=== PATIENT | male | born 1945 | race Caucasian/White ===

== ENCOUNTER 2022-05-11 21:26 | Emergency (ER) | payer MEDICARE, BC, SELFPAY ==
[2022-05-11 21:38] VITALS: BP 188/74; PULSE 97; RESP 18; TEMP 36.9; O2SAT 99; BMI 39.9
--- NOTE | 2022-05-11 21:59 | ED_ITS ---
HPI - Chest Pain General Chief Complaint: Chest Pain Stated Complaint: Tightness in chest, trapped belch Time Seen by Provider: 05/11/22 21:55 History of Present Illness HPI narrative: 76-year-old man presenting with his daughter with concern of epigastric area discomfort. He describes it as gas that just will not come up. as he tries to belch seems to exacerbate his anxiety. He says not really a pain more like a sensation of a bubble. Has tried anti-gas chewables. He is receiving chemotherapy and they think there is some degree of constipation from his medications. Last bowel movement prior to today was 5 or 6 days ago. Today had some smaller stools 4 times. This apparently was aided by MiraLax. Did experience some nausea yesterday he thinks when felt like 1 belch seemed stock. no fever. No shortness of breath generally. Does have diazepam recently prescribed but has not been taking it. 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 There was also uptake in the bilateral hilar and right lower paratracheal lymph nodes, subcentimeter 6 mm nodule in the right upper lobe . 03/11/2022 started on Lupron 22.5 mcg subQ Q 3 monthly 03/11/2022 PSA 116 03/19/2022 DEXA scan consistent with normal bone density 03/24/2022 Xtandi started at 2 capsules oral daily for 1 week followed by 3 capsules oral daily for 1 week followed by 4 capsules oral daily 03/31/2022 lymph node FNA from the 4R/10 L/11 L stations consistent with metastatic prostate carcinoma Related Data Home Medications Medication Instructions Recorded Confirmed enzalutamide 40 mg capsule 160 mg PO DAILY 05/06/22 05/06/22 aspirin 81 mg capsule 81 mg PO DAILY 05/11/22 05/11/22 diazepam 5 mg tablet mg 05/11/22 glipizide 10 mg tablet mg 05/11/22 insulin glargine 100 unit/mL (3 unit SUBCUT 05/11/22 mL) subcutaneous pen (Lantus Solostar U-100 Insulin) losartan 100 mg tablet mg 05/11/22 metformin 1,000 mg tablet mg 05/11/22 simvastatin 20 mg tablet mg 05/11/22 triamterene 75 tab 05/11/22 mg-hydrochlorothiazide 50 mg tablet Allergies Allergy/AdvReac Type Severity Reaction Status Date / Time No Known Drug Allergies Allergy Verified 05/11/22 21:44 Review of Systems Status of ROS Reports: 10 or more systems reviewed and unremarkable except as noted in History and below PFSH [facility] Social History Smoking Status: Former smoker How often do you have a drink containing alcohol: monthly or less AUDIT-C Alcohol total score: 1 Non-prescribed substance use: denies use service: No Exam Narrative Exam Narrative: Mr. Huerta is a little distracted. Daughter answers many of these questions. Is seeming to make efforts at belching. At 1 point then demonstrating slight relief with a belch. Appears mildly uncomfortable Is breathing easily. Lungs appear to be clear. Oropharynx is moist. Cardiovascular with elevated regular rate. Abdomen is obese soft and nontender. Normoactive bowel sounds are present. Const Vital Signs, click to edit/add: Vital Signs - 24 hr 05/11/22 21:38 Temperature 98.4 F Pulse Rate [Left Pulse Oximeter] 97 Respiratory Rate 18 Blood Pressure [Left Upper Arm] 188/74 H Pulse Oximetry 99 Course Course Hospital Course: Differential certainly includes cardiac issue here but really seems to be demonstrating a gas mobilization issue and some anxiety around that. Ordered abdominal x-ray to evaluate for air-fluid pattern and degree of potential constipation. Was also treated with liquid anti-gas. This resulted in some relief of his symptoms. Vital Signs Vital signs: Initial Vital Signs Temperature 98.4 F 05/11/22 21:38 Temperature Source Temporal Artery Scan 05/11/22 21:38 Pulse Rate 97 05/11/22 21:38 Respiratory Rate 18 05/11/22 21:38 Blood Pressure 188/74 H 05/11/22 21:38 Blood Pressure Mean 112 05/11/22 21:38 Blood Pressure Position Sitting 05/11/22 21:38 Pulse Oximetry 99 05/11/22 21:38 Oxygen Delivery Method 05/11/22 21:38 Vital Signs Temperature 98.4 F 05/11/22 21:38 Pulse Rate 97 05/11/22 21:38 Respiratory Rate 18 05/11/22 21:38 Blood Pressure 188/74 H 05/11/22 21:38 Pulse Oximetry 99 05/11/22 21:38 Temperature 98.4 F 05/11/22 21:38 Pulse Rate 97 05/11/22 21:38 Respiratory Rate 18 05/11/22 21:38 Blood Pressure 188/74 H 05/11/22 21:38 Pulse Oximetry 99 05/11/22 21:38 MDM - Chest Pain MDM Narrative Medical decision making narrative: Abdominal x-ray does not show concerning air-fluid levels on my review. Limited by abdominal habitus I would say. There is rectal sigmoid and descending colon stool though not necessarily excessive. Radiology review notes cancer related sclerotic lesions. By description though he is constipated See discharge for further recommendations. Given time of night and holiday weekend, did send with a few more doses of liquid anti-gas/antacid as requested. Medical Records Data Attestation: I reviewed the patient's medical records. Discharge Plan Discharge Clinical Impression: Sensation of gaseous abdominal fullness, Anxiety, Constipation Patient Disposition: Home w/ Parent or Adult Condition: Improved Additional Instructions: can take liquid anti-gas a few times daily as needed. the active ingredient in anti-gas medication is simethicone. Often this is combined with antacid. important to hydrate. Can continue with MiraLax probably 2-3 capfulls in the morning. Then adjust for stool consistency. For more urgent constipation relief, especially with hard stools, I would consider placing an enema and repeating in an hour so if no significant result. Can also does 1/2 bottle to a whole bottle of Mag medium citrate and repeating next day if no significant result. If you do end up needing to take opiates in the course of all of this, be sure to be supplementing with a senna product. Return for marked increase in persistent abdominal pain, repeated vomiting. It is okay to use your diazepam if your feeling particularly anxious; That is what It is prescribed for. Prescriptions: No Action enzalutamide 40 mg capsule 160 mg PO DAILY 0RF aspirin 81 mg capsule 81 mg PO DAILY 0RF glipizide 10 mg tablet 0RF simvastatin 20 mg tablet 0RF metformin 1,000 mg tablet 0RF triamterene-hydrochlorothiazid 75-50 mg tablet 0RF losartan 100 mg tablet 0RF diazepam 5 mg tablet 0RF Label Comments: 5 MG PO TID PRN insulin glargine [Lantus Solostar U-100 Insulin] 100 unit/mL (3 mL) insulin pen SUBCUT 0RF Follow Up/Referrals: Art Leonardo MD [Primary Care Provider] - Stand Alone Forms: [employer] Info Instructions
--- NOTE | 2022-05-11 22:08 | CRLHL7_ITS ---
For Patients: As a result of the Century Cures Act, medical imaging exams and procedure reports are released immediately into your electronic medical record. You may view this report before your referring provider. If you have questions, please contact your health care provider. INDICATION: Abdominal fullness, gas TECHNIQUE: Abdomen/Pelvis radiograph 5 views COMPARISON: None FINDINGS: Bowel: The bowel gas pattern is normal without evidence of bowel obstruction. A normal amount of colonic stool is present. Soft tissue: No evidence of pneumoperitoneum present. No suspicious calcifications noted. Bone: Unremarkable for age. Miscellaneous: There is an ovoid region of sclerosis overlying the right SI joint measuring 3.8 x 2.3 cm. IMPRESSION: 1. There is an ovoid region of sclerosis overlying the right SI joint measuring 3.8 x 2.3 cm. Comparison with any prior outside imaging is recommended. If these cannot be obtained, assessment with bone scan or CT may be warranted if the patient has a history of primary malignancy. Dictated by Nacho Dawson MD @ 05/11/2022 11:07:25 PM Dictated by: Nacho Dawson MD @ 05/11/2022 23:07:33 (Electronically Signed)
[2022-05-11] MEDS: MAG HYDROX/ALUMINUM HYD/SIMETH 30 ML ORAL.SUSP PO (22:50)
--- NOTE | 2022-05-11 23:56 | ED.NURSE ---
2350 Pt standing at door acco by daughter eager for dc instruction, denies pain now, sent with two cups of maalox per Dr. Guevara Rx
== END 2022-05-11 23:53 ==
PROVIDERS: Emergency Provider Family Medicine; PCP Surgery
DX: R14.0 Abdominal distension (gaseous) (principal); F41.9 Anxiety disorder, unspecified; K59.00 Constipation, unspecified
CPT/HCPCS: 74019; 99283; 99284; A9270

== ENCOUNTER 2022-05-20 15:02 | Outpatient (RCR) | payer MEDICARE, BC, SELFPAY ==
--- OUTSIDE RECORDS SUMMARY | 2022-05-02 14:43 | XMS_ITS | Continuity of Care Document ---
:1945 Author Care Team Providers Name Role Phone MD Malissa Primary Care Physician MD Andrew Attending Physician Unavailable Allergies, Adverse Reactions, Alerts No known allergies Social History Smoking Status Unknown if ever smoked Additional Data Assigned Sex Male Problems Active Problems Medical Problem Onset Date Status Prostate cancer 2021 Active Medications Medication Status Dose Units Route Directions Qty Days Start End Ins tructions Date Date Acetaminophen Active 325-6 MG PO Every 4 100 NO MORE THAN (Tylenol) 325 50 Hours as 400 0 MG/DAY Mg TAB needed Aluminum Active 1 ST OR As Needed Hydroxide-Mag Carb (Heartburn Antacid Extra S) Ex St CHW Aspirin Active 81 MG PO Daily 100 Calms Active Fortsleep Aid Diazepam Active 5 MG PO Three Times 30 March A Day as 3rd, needed 2021 10:29a m Enzalutamide Active 160 MG PO Daily 120 07 April take 4 (Xtandi) 40 Mg 3rd, capsu les oral CAP 2021 daily. 10:34a m Glipizide Active 10 MG PO Daily 30 Glucose Gummy Active Insulin Active 60 UNIT SUBQ Bedtime 15 Glargine (Lantus Solostar) 100 Unit/Ml INJ Losartan Active 100 MG PO Daily 30 Potassium Metformin Hcl Active 1000 MG PO Twice Daily 60 With Meals Simvastatin Active 20 MG PO Bedtime 30 Triamterene/Hc Active 1 TAB PO Daily 30 tz (Maxzide) 75 Mg/50 Mg TAB Bicalutamide Discontinu 50 MG OR Daily 14 14 March ed 3rd, , 2021 2021 10:31a 8:31a m m Dextromethorph Discontinu 1 FLU OR April an-Doxylamine- ed , (Nyquil 2021 Cold & Flu) / 8:31a LIQ m Enzalutamide Discontinu 160 MG PO Daily 120 30 March ta ke 4 (Xtandi) 40 Mg ed 3rd, 3rd, capsu les oral CAP 2021 2021 daily 10:31a 10:34 m am Relevant Diagnostic Tests and/or Laboratory Data Laboratory Results Test Date/Time Result Interpretation Reference Result Comment Performing Range Site White Blood April 16, 5.30 5.00-10.00 [facility] Count 2021 [address] [facility] 8:26am [place] [address] Red Blood Count April 16, 3.86 4.32-5.72 [facility] 2021 [address] [facility] 8:26am [place] [address] Hemoglobin April 16, 12.1 13.5-17.5 [facility] 2021 [address] [facility] 8:26am [place] [address] Hematocrit April 16, 37.4 38.8-50.0 [facility] 2021 [address] [facility] 8:26am [place] [address] Mean April 16, 97 81-95 [facility] Corpuscular 2021 1999 [facility] Volume 8:26am [place] [address] Mean April 16, 31 27-34 [facility] Corpuscular 2021 1999 [facility] Hemoglobin 8:26am [place] [address] Mean April 16, 32 32-36 [facility] Corpuscular 2021 1999 [facility] Hemoglobin 8:26am [place] [address] Concent Platelet Count April 16, 202 150-450 [facility] Lab 2021 [address] [facility] 8:26am [place] [address] RDW Coefficient April 16, 12.3 11.5-15.3 [facility] of Variation 2021 1999 No [facility] 8:26am [place] [address] Neutrophils (%) April 16, 60.9 50.0-70.0 [facility] (Auto) 2021 [address] [facility] 8:26am [place] [address] Lymphocytes (%) April 16, 23.6 25.0-45.0 [facility] (Auto) 2021 [address] [facility] 8:26am [place] [address] Monocytes (%) April 16, 9.6 0.00-11.0 [facility] (Auto) 2021 [address] [facility] 8:26am [place] [address] Eosinophils (%) April 16, 4.2 0.0-7.0 [facility] (Auto) 2021 [address] [facility] 8:26am [place] [address] Basophils (%) April 16, 0.8 0.0-3.0 [facility] (Auto) 2021 [address] [facility] 8:26am [place] [address] Immature April 16, [address].9 [facility] Granulocyte % 2021 1999 [facility] (Auto) 8:26am [facility] [address] Neutrophils # April 16, 3.23 1.70-7.00 [facility] (Auto) 2021 [address] [facility] 8:26am [place] [address] Lymphocytes # April 16, 1.25 0.90-2.90 [facility] (Auto) 2021 [address] [facility] 8:26am [place] [address] Monocytes # April 16, 0.51 0.30-0.90 [facility] Lab (Auto) 2021 [address] [facility] 8:26am [facility] [address] Eosinophils # April 16, 0.22 0.00-0.50 [facility] (Auto) 2021 [address] [facility] 8:26am [facility] [address] Basophils # April 16, 0.04 0.00-0.20 [facility] Lab (Auto) 2021 [address] [facility] 8:26am [place] [address] Immature April 16, [address].05 [facility] Granulocyte # 2021 [address] [facility] (Auto) 8:26am [facility] [address] Random Glucose April 16, 146 60-115 [facility] 2021 [address] [facility] 8:26am [facility] [address] Blood Urea April 16, 34 7-30 [facility] Nitrogen 2021 [address] [facility] 8:26am [place] [address] Creatinine April 16, 1.5 0.5-1.5 [facility] 2021 [address] [facility] 8:26am [place] [address] [address]imated April [address], [address] [facility] Creatinine 2021 1999 [facility] Clearance 8:26am [facility] [address] Sodium Level April 16, 137 135-149 [facility] 2021 [address] [facility] 8:26am [facility] [address] Potassium Level April 16, 4.7 3.6-5.1 [facility] 2021 [address] [facility] 8:26am [place] [address] Chloride Level April 16, 101 96-114 [facility] 2021 [address] [facility] 8:26am [facility] [address] Carbon Dioxide April 16, 20-32 [facility] Level 2021 [address] [facility] 8:26am [facility] [address] Calcium Level April 16, 8.9 8.4-10.6 [facility] 2021 [address] [facility] 8:26am [facility] [address] Total Protein April 16, 7.1 6.0-8.3 The use of [facility] Lab 2021 Eltrombopag, a [address] [facility] 8:26am bone [place] [address] stimulant used to treat thrombocytopenia and aplastic anemia, interferes with this measurement of total protein. A 5% bias has been observed. Albumin April 16, 4.2 3.3-5.0 [facility] 2021 [address] [facility] 8:26am [facility] [address] Total Bilirubin April 16, 0.4 0.1-1.5 [facility] 2021 [address] [facility] 8:26am [facility] [address] Aspartate Amino April 16 12-35 [facility] Transf 2021 1999 [facility] (AST/SGOT) 8:26am [place] [address] Alanine April 16, 18 4-50 [facility] Aminotransferas 2021 [address] [facility] e (ALT/SGPT) 8:26am [place] [address] Alkaline April 16, 103 40-150 [facility] Phosphatase 2021 1999 [facility] 8:26am [facility] [address] Prostate March 11, 116.00 0.10-4.00 Patients taking a No [facility] Specific 2021 high dose [address] [facility] Antigen 11:23am (>5mg/day) [place] [address] Biotin supplement (vitamin B7) will demonstrate a >10% negative bias for this test. Insurance Providers Guarantor Valencia Isbell Address [address] [place] [address] [address] [place] [id number] Contact Info. Home Phone: Payer Policy Id Coverage Id Subscriber's Subscriber Id Effective E xpiration Name Date Date Medicare [id number] S[place]hi, [id number] 08 Valencia Eric Medicaid [id number] [employer], Products 469 Valencia L Encounters Encounter Location(s) Arrival/Admit Date Discharge/Depart Date Provider(s) Registered [place] April 16, 2022 Ariella Morales [facility] 7:05am
[2022-05-14 08:53] LABS: Basophils Absolute Auto 0.05 K/uL (0.00-0.30); Basophils Percent Auto 0.9 % (0.0-3.0); Eosinophils Absolute Auto 0.18 K/uL (0.00-0.50); Eosinophils Percent Auto 3.2 % (0.0-7.0); Hematocrit 35.7 % (37.0-53.0); Hemoglobin* 11.9 gm/dL (13.5-17.5); Immature Granulocytes Abs Auto 0.03 K/uL (0.00-0.30); Lymphocytes Absolute Auto 1.14 K/uL (0.90-2.90); Lymphocytes Percent Auto 20.4 % (20-44); Mean Corpuscular HGB Conc 33 gm/dL (32-36); Mean Corpuscular Hemoglobin 32 pg (26-34); Mean Corpuscular Volume 96 fL (80-100); Monocytes Percent Auto 10.9 % (0.0-11.0); Neutrophils Absolute Auto 3.57 K/uL (1.7-7.0); Neutrophils Percent Auto 64.1 % (42.0-72.0); Platelet Count* 228 K/uL (140-440); RDW Coefficient of Variation % 12.1 % (11.5-15.5); Red Blood Count 3.73 m/uL (4.30-5.90); White Blood Count* 5.58 K/uL (4.50-11.00)
[2022-05-14 08:56] LABS: Slide Review Reflex No
[2022-05-14 09:07] LABS: Chloride* 102 mmol/L (96-114); Potassium* 4.7 mmol/L (3.6-5.1); Sodium* 138 mmol/L (135-149)
[2022-05-14 09:09] LABS: Creatinine* 1.7 mg/dL (0.5-1.5); Estimated Glomerular Filt Rate 41.26
[2022-05-14 09:10] LABS: Alanine Aminotransferase* 17 U/L (4-50); Alkaline Phosphatase* 115 U/L (40-150); Aspartate Amino Transferase* 23 U/L (12-35); Bilirubin Total* 0.6 mg/dL (0.1-1.5); Blood Urea Nitrogen* 36 mg/dL (7-30); Calcium* 8.3 mg/dL (8.4-10.6); Carbon Dioxide* 31 mmol/L (20-32); Glucose* 202 mg/dL (60-115); Total Protein* 6.9 g/dL (6.0-8.3)
--- NOTE | 2022-05-15 16:51 | ONC.NURNOTE ---
Authorization: User: Jana Reyes Aleksandertatykelsey Date: 03/14/22 11:04 Type: Eligibility Determination Note... Request received from [facility] for prior authorization of Leuprolide [id number]. Patient carries Medicare as primary insurance. Per CMS.gov LCD [id number] no prior authorization is required for Leuprolide. Services are based on medical necessity and follows Medicare guidelines.
[2022-05-20 15:48] LABS: Creatinine* 1.5 mg/dL (0.5-1.5); Estimated Glomerular Filt Rate 47.95
--- NOTE | 2022-05-20 16:37 | ONC.NURNOTE ---
copy of Creating left for Dr. Morales to see tomorrow
--- NOTE | 2022-05-21 15:52 | ONC.NURNOTE ---
Cremarion called to daughter, returned to his recent baseline reminded to continue to work on staying hydrated reviewed by Dr Morales
== END 2022-06-08 23:59 | disposition home or self-care (01) ==
LOC: CCIC 15:02
PROVIDERS: PCP Surgery; Visit Provider Internal Medicine Hematology & Oncology
DX: C61 Malignant neoplasm of prostate (principal)
CPT/HCPCS: 36415; 80053; 82565; 85025; 99212; 99215

== ENCOUNTER 2022-07-11 07:57 | Outpatient (CLI) | payer MEDICARE, BC, SELFPAY ==
--- OUTSIDE RECORDS SUMMARY | 2022-07-11 08:00 | XMS_ITS ---
:1945 Author Care Team Providers Name Role Phone SAADIA DAVIS MD Primary Care Provider [phone] Allergies Code Code System Name Reaction Severity Status Onset NKDA ? Medications Name Status Start Date Stop Date ? ? ceftriaxone 1 gram solution for injection Active ? Not available Take 1 g by injection route. diazepam 10 mg tablet Active ? Not availa ble doxazosin 2 mg tablet Active ? Not availa ble glipizide 10 mg tablet Active ? Not avail able Lantus Solostar U-100 Insulin 100 unit/mL (3 mL) Active ? Not available subcutaneous pen losartan 100 mg tablet Active ? Not avail able losartan 50 mg tablet Active ? Not availa ble metformin 1,000 mg tablet Active ? Not av ailable simvastatin 20 mg tablet Active ? Not arvin ilable triamterene 75 mg-hydrochlorothiazide 50 mg tablet Active ? Not available Unifine Pentips 32 gauge x 1/4 needle Active ? Not available Problems None recorded. Procedures Date Name Performed by ? 08/05/2018 Extraction of Cataract Information not a vailable Notes: LEFT ? Extraction of Cataract Information not a vailable Notes: RIGHT: 2015 Results Lab Results None recorded. Past Encounters 02/20/2022 Raised Prostate Specific Antigen Jaovn Nichols MD: [address] [place] [address], Ph. Social History Tobacco Smoking Status Former Smoker Vaccine List None recorded. Plan of Care Reminders Provider Appointments None recorded. ? ? Lab None recorded. ? ? Referral None recorded. ? ? Procedures None recorded. ? ? Surgeries None recorded. ? ? Imaging None recorded. ? ? Vitals Height Weight BMI 5 ft 5 in 240 lbs 39.9 kg/m2
--- OUTSIDE RECORDS SUMMARY | 2022-07-11 08:00 | XMS_ITS | Encounter Summary ---
:1945 Author Organization [facility] Address [address] [place] [address] Care Team Providers Name Role Phone Unavailable Primary Care Provider Unavailable Reason for Visit Reason Onset Date Comments Surgery Date 06/18/2018 Encounter Details Date Type Department Care Team Description 06/18/2018 Clinical Communication [facility], in [address] [place], [place] [address] [facility] [address] [place] [phone] [address] (Work) [phone] Social History Tobacco Use Types Packs/Day Years Used Date Smoking Tobacco: Never Assessed Sex Assigned at Date Recorded Not on file documented as of this encounter Miscellaneous Notes Telephone Encounter - Nathaly Vizcaino - 06/18/2018 12:46 PM CDT PHYSICIAN: Johnathan REASON FOR CALL: Preop done Flako Mixon S: SURG DATE: 08/05/18 left Cataract Johnathan B: REQUEST FOR SURG: YANI A: ANESTHESIA: topical R: HOSP WILL CALL WITH TIME documented in this encounter Plan of Treatment Not on filedocumented as of this encounter Visit Diagnoses Not on filedocumented in this encounter
--- OUTSIDE RECORDS SUMMARY | 2022-07-11 08:00 | XMS_ITS | Encounter Summary ---
:1945 Author Organization [facility] Address [address] [place] [address] Care Team Providers Name Role Phone Unavailable Primary Care Provider Unavailable Encounter Details Date Type Department Care Team Description 07/19/2018 Ancillary Procedure Department of Ophthalmology Social History Tobacco Use Types Packs/Day Years Used Date Smoking Tobacco: Never Assessed Sex Assigned at Date Recorded Not on file documented as of this encounter Plan of Treatment Not on filedocumented as of this encounter Procedures Procedure Name Priority Date/Time Associated Comments Diagnosis OPHTHALMOLOGY IMAGE Routine 07/19/2018 12:00 Resu lts for this EXAM PM CDT procedure are i n the results section. documented in this encounter Results OPHTHALMOLOGY IMAGE EXAM (07/19/2018 12:00 PM CDT) Specimen (Source) Anatomical Location Collection Method / Collectio n Time Received Time / Laterality Volume Narrative [facility] - 08/17/2018 7:08 AM CDT This order has been created and auto-finalized to support the import of images acquired without order. The clini nathaniel documentation to support these images can be found on the encounter cristela t produced images. Provider Not In System IMG NON RAD IMAGING PROCEDUR ES Performing Organization Address City/State/ZIP Code Phon e Number [facility] NA documented in this encounter Visit Diagnoses Not on filedocumented in this encounter
--- OUTSIDE RECORDS SUMMARY | 2022-07-11 08:00 | XMS_ITS | Encounter Summary ---
:1945 Author Organization [facility] Address [address] [place] [address] Care Team Providers Name Role Phone Unavailable Primary Care Provider Unavailable Encounter Details Date Type Department Care Team Description 04/26/2013 Hospital Encounter HX NO MAPPING Provider, Historical Social History Tobacco Use Types Packs/Day Years Used Date Smoking Tobacco: Never Assessed Sex Assigned at Date Recorded Not on file documented as of this encounter Plan of Treatment Not on filedocumented as of this encounter Procedures Procedure Name Priority Date/Time Associated Comments Diagnosis HX UREA NITROGEN Routine 04/26/2013 10:24 PM Resu lts for this CDT procedure are i n the results section. HX CHOL/HDL RATIO Routine 04/26/2013 10:24 PM Res ults for this CDT procedure are i n the results section. HX VLDL CHOL Routine 04/26/2013 10:24 PM Results for this CDT procedure are i n the results section. CREATININE WITH Routine 04/26/2013 10:24 PM Resul ts for this EGFR, P CDT procedure are i n the results section. CREATININE WITH Routine 04/26/2013 10:24 PM Resul ts for this EGFR, P CDT procedure are i n the results section. LIPID PANEL, S Routine 04/26/2013 10:24 PM Result s for this CDT procedure are i n the results section. TRIGLYCERIDES, S Routine 04/26/2013 10:24 PM Resu lts for this CDT procedure are i n the results section. CHOLESTEROL, HDL, S Routine 04/26/2013 10:24 PM R esults for this CDT procedure are i n the results section. CREATININE WITH Routine 04/26/2013 10:24 PM Resul ts for this EGFR, S/P CDT procedure are i n the results section. CHOLESTEROL, TOTAL, Routine 04/26/2013 10:24 PM R esults for this S CDT procedure are i n the results section. HEMOGLOBIN A1C, B Routine 04/26/2013 10:14 PM Res ults for this CDT procedure are i n the results section. documented in this encounter Results Creatinine with Estimated GFR (MDRD), Plasma (04/26/2013 10:24 PM CDT) P athologist Signature eGFR 63 [id number] [facility] [place] [facility] Specimen (Source) Anatomical Collection Method Collection Time Re ceived Time Location / / Volume Laterality 04/26/2013 10:24 PM CDT Historical Provider LAB BLOOD ADD-ON Performing Organization Address City/State/ZIP Code Phon e Number [facility] Creatinine with Estimated GFR (MDRD), Plasma (04/26/2013 10:24 PM CDT) P athologist Signature HXeGFR (MDRD) 52 [id number] [facility] Specimen (Source) Anatomical Collection Method Collection Time Re ceived Time Location / / Volume Laterality 04/26/2013 10:24 PM CDT Historical Provider LAB BLOOD ADD-ON Performing Organization Address City/State/ZIP Code Phon e Number [facility] Creatinine with Estimated GFR (MDRD) (04/26/2013 10:24 PM CDT) P athologist Signature Creatinine 1.37 MGDL [facility] Specimen (Source) Anatomical Collection Method Collection Time Re ceived Time Location / / Volume Laterality 04/26/2013 10:24 PM CDT Historical Provider LAB BLOOD ADD-ON Performing Organization Address City/State/ZIP Code Phon e Number [facility] HX UREA NITROGEN (04/26/2013 10:24 PM CDT) P athologist Signature Urea Nitrogen, 31 MGDL [facility] 24 HR, [facility] Specimen (Source) Anatomical Collection Method Collection Time Re ceived Time Location / / Volume Laterality 04/26/2013 10:24 PM CDT Historical Provider LAB HISTORICAL ORDERS Performing Organization Address City/State/ZIP Code Phon e Number [facility] HX CHOL/HDL RATIO (04/26/2013 10:24 PM CDT) P athologist Signature Total 2.8 [facility] Cholesterol/HDL [facility] Ratio LAB Specimen (Source) Anatomical Collection Method Collection Time Re ceived Time Location / / Volume Laterality 04/26/2013 10:24 PM CDT Historical Provider LAB HISTORICAL ORDERS Performing Organization Address City/State/ZIP Code Phon e Number [facility] HX VLDL CHOL (04/26/2013 10:24 PM CDT) P athologist Signature VLDL cholesterol 40 MGDL [facility] Specimen (Source) Anatomical Collection Method Collection Time Re ceived Time Location / / Volume Laterality 04/26/2013 10:24 PM CDT Historical Provider LAB HISTORICAL ORDERS Performing Organization Address City/State/ZIP Code Phon e Number [facility] Lipid Panel (04/26/2013 10:24 PM CDT) P athologist Signature Calculated LDL 35 MGDL [facility] Specimen (Source) Anatomical Collection Method Collection Time Re ceived Time Location / / Volume Laterality 04/26/2013 10:24 PM CDT Narrative [facility] - 01/05/20 14 7:57 PM [employer] LDL Cholesterol is the primary guide to therapy: LDL-cholesterol goal in high risk patients is <100 mg/dL and in very high risk patients is <70 mg/dL. Historical Provider LAB BLOOD ADD-ON Performing Organization Address City/State/ZIP Code Phon e Number [facility] Cholesterol, High-Density Lipoprotein (HDL) (04/26/2013 10:24 PM CDT) P athologist Signature HX HDL 41 MGDL [facility] Specimen (Source) Anatomical Collection Method Collection Time Re ceived Time Location / / Volume Laterality 04/26/2013 10:24 PM CDT Historical Provider LAB BLOOD ADD-ON Performing Organization Address City/State/ZIP Code Phon e Number [facility] Triglycerides (04/26/2013 10:24 PM CDT) P athologist Signature Triglycerides 199 MGDL [facility] Specimen (Source) Anatomical Collection Method Collection Time Re ceived Time Location / / Volume Laterality 04/26/2013 10:24 PM CDT Historical Provider LAB BLOOD ADD-ON Performing Organization Address City/State/ZIP Code Phon e Number [facility] Cholesterol, Total (04/26/2013 10:24 PM CDT) P athologist Signature Cholestanol 116 MGDL [facility] Specimen (Source) Anatomical Collection Method Collection Time Re ceived Time Location / / Volume Laterality 04/26/2013 10:24 PM CDT Narrative [facility] - 01/05/20 14 7:57 PM [employer] LDL Cholesterol is the primary guide to therapy. The NCEP recommends further evaluation o f: patients with cholesterol greater than 200 mg/dL if additional risk factor s are present, cholesterol greater than 240 mg/dL, triglycerides greater than 15 0 mg/dL, or HDL less than 40 mg/dL. Historical Provider LAB BLOOD ADD-ON Performing Organization Address City/State/ZIP Code Phon e Number [facility] Hemoglobin A1c (04/26/2013 10:14 PM CDT) P athologist Signature Hemoglobin A1c, 7.3 [facility] Specimen (Source) Anatomical Collection Method Collection Time Re ceived Time Location / / Volume Laterality 04/26/2013 10:14 PM CDT Historical Provider LAB BLOOD ADD-ON Performing Organization Address City/State/ZIP Code Phon e Number [facility] documented in this encounter Visit Diagnoses Not on filedocumented in this encounter
--- OUTSIDE RECORDS SUMMARY | 2022-07-11 08:00 | XMS_ITS | Clinical Summary ---
:1945 Author Organization [facility] Address [address] [place] [address] Care Team Providers Name Role Phone Unavailable Primary Care Provider Unavailable Source Comments Patient records contain information from all sites at [facility]. For routine questions regarding patient records, call [phone] during business hours, M-F 8:00 AM - 5:00 PM Central Time. Record requests for emergency care only can be directed to [phone] at any time.[facility] Allergies No known active allergies Medications Medication Sig Dispensed Refills Start Date End Date Status aspirin [address] Take 81 mg by 0 11/10/2014 Active tablet mouth. blood sugar diagnostic Dispense meter, 0 10/01/2016 Active strips test strips, lancets covered by pt ins.E11.42 test twice daily blood-glucose meter Dispense meter, 0 08/30/2015 Active kit test strips, lancets covered by pt ins. E11.9 IDDM type II - Test 2 times/day. doxazosin (CARDURA) 2 Take 2 mg by mouth. 0 03/19/20 18 Active mg tablet glipiZIDE (GLUCOTROL) Take 10 mg by 0 03/31/2018 Active 10 mg tablet mouth. pen needle, diabetic USE FOR 0 05/20/2018 Active (INSUPEN) 32 gauge x ADMINISTERING 1/4 needle INSULIN AT HOME DAILY lancets Dispense meter, 0 10/01/2016 Act delilah test strips, lancets covered by pt ins. E11.9 - Test 1 time/day insulin glargine Inject under the 0 07/16/2018 Active (LANTUS SOLOSTAR U-100 skin. INSULIN) 100 unit/mL (3 mL) injection metFORMIN (GLUCOPHAGE) Take 1,000 mg by 0 03/31/2018 Active 1,000 mg tablet mouth. simvastatin (ZOCOR) 20 Take 20 mg by 0 03/31/2018 Active mg tablet mouth. triamterene-hydroCHLOR Take 1 tablet by 0 03/31/2018 Active Othiazide (MAXZIDE) mouth. 75-50 mg per tablet tetrahydrozoline Administer 1 drop 0 Active (VISINE) 0.05 % into both eyes once ophthalmic solution as needed. Social History Tobacco Use Types Packs/Day Years Used Date Smoking Tobacco: Never Assessed Sex Assigned at Date Recorded Not on file Plan of Treatment Health Maintenance Due Date Last Done Comments Hepatitis C Screening 1945 DTaP,Tdap,and Td Vaccines (1 - 1964 Tdap) Creatinine Level 10/24/2021 10/24/2020, 04/05/2020, 11/04/2019, Additional history exists Potassium Level 10/24/2021 10/24/2020, 04/05/2020, 11/04/2019, Additional history exists Sodium Level 10/24/2021 10/24/2020, 04/05/2020, 05/27/2019, Additional history exists Depression Screening (Annual 11/09/2021 PHQ-2) Fall Risk Screen (Annual) 11/09/2021 Zoster Vaccines (2 of 2) 02/08/2022 12/14/2021, 02/28/2014 Influenza Vaccine (#1) 2022 07/23/2021, 09/26/2020, 11/04/2019, Additional history exists Pneumococcal vaccine (65+ years) Completed 08/30/2015, COVID-19 Vaccine Completed 04/14/2022, 10/23/2021, 01/17/2021, Additional history exists Medical Devices Implanted Type Area Client Relationship Consultant Device Shelf Model / Identifier Expiration Date Ser ial / Lot Ocular Lens Ocular Lens Right: Eye Description: 2013 in [place] Ocular Lens-08/05/2018 Ocular Lens Left: Eye Implanted: 08/05/2018 by Tomi Mann Jr., M.D. (Quantity not on fi le) Insurance Payer Benefit Plan Subscriber ID Effective Phone Address Typ e / Group Dates MEDICARE MEDICARE A [id number] 2010-Prese [address] [place] [address] BLUE CROSS [facility] BLUE [id number] 2017-Prese ATTN: Yani mittal HMO BLUE SHIELD PLUS HMO nt CONSUMER [facility] [place] [address] [address] [place] [address]
--- OUTSIDE RECORDS SUMMARY | 2022-07-11 08:00 | XMS_ITS | Encounter Summary ---
:1945 Author Organization [facility] Address [address] [place] [address] Care Team Providers Name Role Phone Unavailable Primary Care Provider Unavailable Reason for Visit Reason Comments Post-op Follow-up Outpatient (Routine) - Closed Specialty Diagnoses / Procedures Referred By Contact Refer red To Contact Ophthalmology Diagnoses Intraocular Lens Implant Status Post Tomi Mann Jr., [facility] Kari David [address] [place] [address] Referral ID Status Reason Start Date Expiration Date Visits Requ ested Visits Authorized [id number] Closed 06/14/2018 06/14/2019 1 1 Encounter Details Date Type Department Care Team Description 09/13/2018 Office Visit Department of Tomi Mann Intraocular Lens Ophthalmology in [place] Implant Status Post [place], [place] [address] [facility] [place] [phone] Social History Tobacco Use Types Packs/Day Years Used Date Smoking Tobacco: Never Assessed Sex Assigned at Date Recorded Not on file documented as of this encounter Progress Notes Tomi Mann M.D. - 09/13/2018 3:00 PM CST Gildardo Huerta was seen today for Post-op Follow-up #1 Intraocular Lens Implant Status Post #1 Doing well, status post KPE with intraocular lens left eye RTO 6-12 months New glasses NE INTERN documented in this encounter Plan of Treatment Not on filedocumented as of this encounter Visit Diagnoses Diagnosis Intraocular Lens Implant Status Post documented in this encounter
--- OUTSIDE RECORDS SUMMARY | 2022-07-11 08:00 | XMS_ITS | Encounter Summary ---
:1945 Author Organization [facility] Address [address] [place] [address] Care Team Providers Name Role Phone Unavailable Primary Care Provider Unavailable Reason for Visit Reason Comments ASCAN Encounter Details Date Type Department Care Team Description 07/19/2018 Ancillary Department of Tomi Mann Intraocular Lens Procedure Ophthalmology in [place] Implant Status Post [place], [place] [address] [place], [place] [phone] Social History Tobacco Use Types Packs/Day Years Used Date Smoking Tobacco: Never Assessed Sex Assigned at Date Recorded Not on file documented as of this encounter Progress Notes Tomi Mann M.D. - 07/19/2018 3:30 PM CDT Gildardo Huerta was seen today for ASCAN #1 Intraocular Lens Implant Status Post Risks and benefits discussed, including infection, retinal detachment, bleeding, and visual loss. Informed consent performed. Patient is a good candidate for proposed cataract surgery on the left eye with intraocular lens. documented in this encounter Plan of Treatment Not on filedocumented as of this encounter Procedures Procedure Name Priority Date/Time Associated Diagnosis Comme nts OCULAR COHERENCE Routine 07/19/2018 4:05 PM Intraocular Lens R esults for this BIOMETRY (OCB) - OU CDT Implant Status Post p rocedure are in - BOTH EYES the results section. documented in this encounter Results Ocular Coherence Biometry (OCB) - OU - Both Eyes (07/19/2018 4:05 PM CDT) Specimen (Source) Anatomical Location Collection Method / Collectio n Time Received Time / Laterality Volume Narrative OPHTHALMOLOGY IMAGING EXAM - 07/19/20 18 4:05 PM CDT MODALITY Right Eye The modality was IOL Master. Notes [id number] posterior chamber intraocular lens right eye of +16.5; anterior chamber intraocular lens of [id number] +13.5 Tomi Mann Jr., M.D. OPHTH PHOTOGRAPHY Performing Organization Address City/State/ZIP Code Phon e Number OPHTHALMOLOGY IMAGING EXAM documented in this encounter Visit Diagnoses Diagnosis Intraocular Lens Implant Status Post documented in this encounter
--- OUTSIDE RECORDS SUMMARY | 2022-07-11 08:00 | XMS_ITS | Encounter Summary ---
:1945 Author Organization [facility] Address [address] [place] [id number] Care Team Providers Name Role Phone Unavailable Primary Care Provider Unavailable Reason for Referral Specialty Diagnoses / Procedures Referred By Contact Refer red To Contact Mary Spencer M.D. [facility] Region [address] [place] [phone] Referral ID Status Reason Start Date Expiration Date Visits Requ ested Visits Authorized RSTITCH MACHINE OPERATOR Encounter Details Date Type Department Care Team Description 09/19/2021 Orders Only [facility] Sa veronica Spencer M.D. [address] [place] [address] [phone] (Wo rk) Social History Tobacco Use Types Packs/Day Years Used Date Smoking Tobacco: Never Assessed Sex Assigned at Date Recorded Not on file documented as of this encounter Plan of Treatment Scheduled Referrals Name Type Priority Associated Order Schedule Diagnoses Covid immunization Outpatient Referral Routine Ex pected: office visit Booster 021 (Approximate), Expires: 09/19/2022 documented as of this encounter Visit Diagnoses Not on filedocumented in this encounter
--- OUTSIDE RECORDS SUMMARY | 2022-07-11 08:00 | XMS_ITS | Encounter Summary ---
:1945 Author Organization [facility] Address [address] [place] [address] Care Team Providers Name Role Phone Unavailable Primary Care Provider Unavailable Reason for Referral Outpatient (Routine) - Closed Specialty Diagnoses / Procedures Referred By Contact Refer red To Contact Ophthalmology Diagnoses Intraocular Lens Implant Status Post Tomi Mann Jr., [facility] NAIF Pierce M.D. [address] [place] [address] Referral ID Status Reason Start Date Expiration Date Visits Requ ested Visits Authorized [id number] Closed 06/14/2018 06/14/2019 1 1 Scheduling Instructions Needs visits for 1 day postop, 1 week po stop, and 1 month postop. Reason for Visit Appointment Request (Routine) - Closed Specialty Diagnoses / Procedures Referred By Contact Refer red To Contact Ophthalmology Referral ID Status Reason Start Date Expiration Date Visits Requ ested Visits Authorized [id number] Closed 06/10/2018 06/10/2019 1 Encounter Details Date Type Department Care Team Description 06/14/2018 Office Visit Department of Tomi Mann Combined Fo maría Age Related Cataract Left Eye (Primary Dx); Ophthalmology in [place] Intraocular Lens Implant Status Post [place] [address] [place] [phone] Social History Tobacco Use Types Packs/Day Years Used Date Smoking Tobacco: Never Assessed Sex Assigned at Date Recorded Not on file documented as of this encounter Progress Notes Tomi Mann M.D. - 06/14/2018 4:15 PM CDT Gildardo Huerta was seen today for No chief complaint on file. 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 Informed consent performed. Patient is a good candidate for proposed cataract surgery on the left eye with intraocular lens. 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
--- OUTSIDE RECORDS SUMMARY | 2022-07-11 08:00 | XMS_ITS | Clinical Summary ---
:1945 Author Organization [facility] [place] [address] Care Team Providers Name Role Phone Art Leonardo MD Primary Care Provider Allergies No known active allergies Medications Medication Sig Dispensed Refills Start Date End Date Status aspirin (ECOTRIN) 81 Take 1 tablet by 0 11/10/2014 Active mg enteric coated mouth once daily tablet with a meal. lancetsIndications: Dispense meter, 100 Each 3 10/01/2016 Active Type 2 diabetes test strips, mellitus without lancets covered by complication, with pt ins. E11.9 - long-term current Test 1 time/day use of insulin (HC) blood sugar Dispense meter, 100 Strip 5 10/01/2016 A ctive diagnostic (BLOOD test strips, GLUCOSE TEST) lancets covered by stripIndications: pt ins.E11.42 test Type 2 diabetes twice daily mellitus with diabetic polyneuropathy, with long-term current use of insulin (HC) blood-glucose Dispense meter, 1 Device 0 07/30/2017 Active meterIndications: test strips, Type 2 diabetes lancets covered by mellitus with pt ins. E11.9 IDDM diabetic type II - Test 2 polyneuropathy, with times/day. long-term current use of insulin (HC) miscellaneous As directed. 1 Each 0 01/18/2021 Sensing Electromagnetic Plus supply (BLOOD PRESSURE CUFF) miscIndications: Hypertension glipiZIDE Take 1 Tablet (10 180 Tablet 3 01/09/2022 Active (GLUCOTROL) 10 mg mg) by mouth 2 tabletIndications: times daily before Type 2 diabetes meals. mellitus with stage 3 chronic kidney disease, with long-term current use of insulin, unspecified whether stage 3a or 3b CKD (HC) metFORMIN TAKE ONE TABLET BY 180 Tablet 3 02/04/2022 Active (GLUCOPHAGE) 1,000 MOUTH TWICE A DAY mg WITH MEALS tabletIndications: Type 2 diabetes mellitus with stage 3 chronic kidney disease, with long-term current use of insulin, unspecified whether stage 3a or 3b CKD (HC) Unifine Pentips 32 USE TO ADMINISTER 100 Each 3 03/04/2022 Active gauge x INSULIN AT HOME ndications: ONCE DAILY Type 2 diabetes DIRECTED mellitus with stage 3 chronic kidney disease, with long-term current use of insulin, unspecified whether stage 3a or 3b CKD (HC) Xtandi 40 mg capsule 0 03/13/2022 Active losartan (COZAAR) Take 1 Tablet (100 90 Tablet 3 04/14/2022 Active 100 mg mg) by mouth once tabletIndications: daily. Hypertension simvastatin (ZOCOR) Take 1 Tablet (20 90 Tablet 3 04/14/2022 Active 20 mg mg) by mouth at tabletIndications: bedtime. Mixed hyperlipidemia triamterene-hydrochl Take 1 Tablet by 90 tablet. 3 04/14/2022 Active orothiazide, 75-50 mouth every mg, (MAXZIDE) 75-50 morning. mg tabletIndications: Hypertension insulin glargine, Inject 60 units 55 mL 3 04/14/2022 Active U-100, (Lantus subcutaneous Solostar U-100 before bedtime. Insulin) 100 unit/mL Product desired: (3 mL) LANTUS SOLOSTAR penIndications: Type 2 diabetes mellitus with stage 3 chronic kidney disease, with long-term current use of insulin, unspecified whether stage 3a or 3b CKD (HC) diazePAM (VALIUM) 0 05/11/2022 A ctive 0.5 mg as quarter tablet clotrimazole Apply topically to 60 g 2 07/08/2022 Active (LOTRIMIN) 1 % affected area(s) creamIndications: two times daily. Tinea cruris furosemide (LASIX) Take 1 Tablet (20 5 Tablet 0 07/09/2022 Active 20 mg mg) by mouth every tabletIndications: morning for 5 Hyperkalemia days. Active Problems Problem Noted Date Anxiety 07/09/2022 Cataract, nuclear sclerotic senile, left 08/04/2018 Chronic kidney disease, stage III (moderate) 7 Morbid obesity with BMI of 40.0-44.9, adult 09/09/2016 Type 2 diabetes mellitus with stage 3 chronic kidney d isease, with 02/26/2013 long-term current use of insulin Hypertension 02/26/2013 Encounters Date Type Specialty Care Team Description 07/10/2022 Orders Only Lab, [facility] 07/10/2022 Travel 07/09/2022 Telephone Yenni Peña DO Abnormal La b Results (Potassium 6.2) 07/08/2022 Office Visit Art Leonardo MD Rash (Groin area) 07/08/2022 Travel 06/10/2022 Telephone Mickie Hooks n ot sign in to rashaun Reyes MS, CGC visit (Checking in) 04/14/2022 Office Visit Art Leonardo MD Diab etes 04/14/2022 Travel from Last 3 Months Immunizations Name Administration Dates Next Due COVID-19 vaccine (Lentigen-[facility] MeNTech 04/14/2022 30mcg/0.3mL) 12YO+ TIRSO-SUCROSE PF, MDV COVID-19 vaccine ([facility]entigen-[employer]NT[employer]bright 10/23/2021, 01/17/2021, 30mcg/0.3mL) PF, MDV Influenza, High-dose Inactivated 10/01/2016, 08/30/2015, 12/2014 Influenza, High-dose Quadrivalent 09/26/2020 Inactivated Influenza, Inactivated AIIV4 (Age 65+ 07/23/2021 Years) Preserv Free Influenza, Inactivated IIV3 (Age 65+ 11/04/2019, 07/06/2018, 07/30/2017 Years) Preserv Free Pneumococcal Poly,23-Valent (Pneumovax) 02/28/2014 Pneumococcal conj 13-Valent (Prevnar 13) 08/30/2015 Zoster (Shingrix-RZV, recombinant) 12/14/2021 Zoster (Zostavax-ZVL, live) 02/28/2014 Family History Medical History Relation Name Comments Diabetes Brother Diabetes Father Relation Name Status Comments Brother Father Social History Tobacco Use Types Packs/Day Years Used Date Former Smoker Cigarettes 0.1 20 Smokeless Tobacco: Never Used Tobacco Cessation: Counseling Given: Yes Alcohol Use Standard Drinks/Week Comments Yes 4 (1 standard drink = 0.6 oz pure alcoho l) 2 beer /week Alcohol Habits Answer Date Recorded How often do you have a drink containing alcohol? 2-3 times a week 05/27/2019 How many drinks containing alcohol do you have on a 1 or 2 05/27/2019 typical day when you are drinking? How often do you have six or more drinks on one Never 05/27/2019 occasion? Comment: 2 beer /week 01/26/2015 Sex Assigned at Date Recorded Not on file COVID-19 Exposure Response Date Recorded In the last 10 days, have you been in contact with No / Unsu re 07/10/2022 3:14 PM CDT someone who was confirmed or suspected to have Coronavirus/COVID-19? Obstetrics History Last Filed Vital Signs Vital Sign Reading Time Taken Comments Blood Pressure 132/66 07/08/2022 11:59 AM CDT Pulse 76 07/08/2022 11:49 AM CDT Temperature 36.6 ??C (97.8 ??F) 03/28/2022 1:41 PM CDT Respiratory Rate 21 03/28/2022 2:25 PM CDT Oxygen Saturation 100% 07/08/2022 11:49 AM CDT Inhaled Oxygen Concentration - - Weight 107 kg (235 lb 12.8 oz) 07/08/2022 11:49 AM CDT Height 165.1 cm (5' 5) 07/08/2022 11:49 AM CDT Body Mass Index 39.24 07/08/2022 11:49 AM CDT Plan of Treatment Upcoming Encounters Date Type Specialty Care Team Description 10/10/2022 Office Visit Art Leonardo MD [address] [place] [address] (Wo rk) Health Maintenance Due Date Last Done Comments Tdap 1956 Tetanus booster 1965 Medicare Wellness for age 65+ 01/18/2022 01/18/2021 Zoster (shingles) series for age 0402/08/2022 12/14/2021, 50+ (2 of 2) Influenza for age 65+ 07/10/2022 07/23/2021, 09/26/2020, 11/04/2019, Additional history exists COVID-19 vaccine series (5 - 08/14/2022 04/14/2022, 021, Booster for Pfizer series) 01/17/2021, Additiona l history exists BMI (ht and wt on same day) for 07/08/2023 07/08/2022, 01/08, age 18+ 11/07/2020, Additional history exists Depression screening for age 12+ 07/10/2023 07/10/2022, , 07/08/2022, Additional history exists Hepatitis C screening for age Completed 02/03/2014 18-79 Pneumococcal series for age 65+ Completed 08/30/2015, 02/08, 02/28/2014 Medical Devices Implanted Type Area Medical Radiation Dosimetrist Device Shelf Model / Serial Identifier Expiration / Lot Date [id number] - [id number] Left: [employer] 01/08 [id number] / Implanted: Qty: 1 on 08/05/2018 by Tomi Mann Jr., MD at [facility] [employer] [id number] / Description: TECNIS IOL 16.5 Procedures Procedure Name Priority Date/Time Associated Diagnosis Comme nts POTASSIUM Routine 07/10/2022 3:23 PM Hyperkalemia Results f or this CDT procedure are i n the results section. URINE ALBUMIN TO Routine 07/08/2022 11:37 Type 2 diabetes Resu lts for this CREATININE RATIO, AM CDT mellitus with stage 3 p rocedure are in RANDOM chronic kidney the results disease, with section. long-term current use of insulin, unspecified whether stage 3a or 3b CKD (HC) BASIC METABOLIC Routine 07/08/2022 11:36 Hypertension Results for this PANEL AM CDT procedure are i n the results section. HEMOGLOBIN A1C Routine 07/08/2022 11:36 Type 2 diabetes Result s for this AM CDT mellitus with stage 3 proced ure are in chronic kidney the results disease, with section. long-term current use of insulin, unspecified whether stage 3a or 3b CKD (HC) from Last 3 Months Results POTASSIUM (07/10/2022 3:23 PM CDT) P athologist Signature POTASSIUM 4.6 3.5 - 5.0 07/11/2022 [facility] mmol/L 4:26 AM CDT LABORATORY-CENTR AL LABORATORY Specimen Anatomical Collection Method / Collection Time Recei amol Time (Source) Location / Volume Laterality Blood BLOOD SPECIMEN / Venipuncture / 07/10/2022 3:23 2021 3:23 Unknown Unknown PM CDT PM CDT Art Leonardo MD CHEMISTRY Performing Organization Address City/State/[facility] Code Phon e Number [facility] [address] [place] [address] LABORATORY-CENTRAL 2000 LABORATORY (ABNORMAL) URINE ALBUMIN TO CREATININE RATIO, RANDOM (07/08/2022 11:37 AM CDT) [facility] gist Method Time Signature ALB RAND URINE 21.9 mg/L 07/08/2022 [facility] 11:34 PM CDT LABORATORY-LISA TRAL LABORATORY CREATININE,URIN 0.60 g/L 07/08/2022 [facility] E 11:34 PM CDT LABORATORY-LISA TRAL LABORATORY ALBUMIN TO 36.5 (H) <30.0 mg/g 07/08/2022 [facility] CREATININE creat 11:34 PM CDT LABORATORY-LISA RATIO,RAND UR TRAL LABORATORY Specimen Anatomical Collection Method Collection Time Receive d Time (Source) Location / / Volume Laterality Urine URINE SPECIMEN / Non-Blood / 07/08/2022 11:37 022 Unknown Unknown AM CDT 11:38 AM CDT Narrative [facility] LABORATORY-CENTRAL LABORAT ORY - 07/08/2022 11:34 PM CDT If Albumin to Creatinine Ratio is elevated, consider the following: ? Elevations seen with incipient nephr opathy associated ?? with diabetes mellitus or hypertensi on. Stress, exercise, ?? hematuria, and urinary tract infecti on may also produce ?? elevated results. If clinically danial cated, confirm with ?? 24 Hour Albumin to Creatinine Ratio. Art Leonardo MD URINE Performing Organization Address City/State/ZIP Code Phon e Number [facility] [address] [place] [address] LABORATORY-CENTRAL 2000 LABORATORY (ABNORMAL) HEMOGLOBIN A1C MONITORING (POCT) (07/08/2022 11:36 AM CDT) Analysis Performed At Path logist Time Signature HEMOGLOBIN A1C 7.0 (H) <=6.4 % 07/08/2022 [facility] MONITORING 11:45 AM CDT [place] (POCT[facility] Specimen Anatomical Collection Method / Collection Time Recei amol Time (Source) Location / Volume Laterality Blood BLOOD SPECIMEN / Venipuncture / 07/08/2022 11:36 07/08 Unknown Unknown AM CDT 11:36 AM CDT Narrative [facility] - 2021 11:45 AM CDT ? (<=6.9%) ? Indicates good control ? (7.0% to 7.9%) ? Indicates fa ir control ? (>=8.0%) ? Indicates poor control ?? NOTE: ??These thresholds are guideli terri and ?individual targets may va ry. Falsely low levels may be seen with: Recent Transfusion, Recent Significant B lood Loss, Hemolytic Diseases, or Falsely elevated levels may be seen with : Untreated Anemias, Splenectomy ? Art Leonardo MD CHEMISTRY Performing Organization Address City/State/ZIP Code Phon e Number [facility] [address] [place] [address] (ABNORMAL) BASIC METABOLIC PANEL (07/08/2022 11:36 AM CDT) Patholo gist Method Time Signature SODIUM 137 135 - 145 07/09/2022 [facility] mmol/L 5:24 AM CDT LABORATORY-LISA TRAL LABORATORY POTASSIUM 6.2 (HH) 3.5 - 5.0 07/09/2022 [facility] mmol/L 5:24 AM CDT LABORATORY-LISA TRAL LABORATORY CHLORIDE 104 98 - 110 07/09/2022 [facility] mmol/L 5:24 AM CDT LABORATORY-LISA TRAL LABORATORY CO2,TOTAL 25 21 - 31 07/09/2022 [facility] mmol/L 5:24 AM CDT LABORATORY-LISA TRAL LABORATORY ANION GAP 8 5 - 18 07/09/2022 [facility] 5:24 AM CDT LABORATORY-LISA TRAL LABORATORY GLUCOSE 80 65 - 100 07/09/2022 [facility] mg/dL 5:24 AM CDT LABORATORY-LISA TRAL LABORATORY CALCIUM 8.8 8.5 - 10.5 07/09/2022 [facility] mg/dL 5:24 AM CDT LABORATORY-LISA TRAL LABORATORY BUN 27 (H) 8 - 25 07/09/2022 [facility] mg/dL 5:24 AM CDT LABORATORY-LISA TRAL LABORATORY CREATININE 1.39 (H) 0.72 - 07/09/2022 [facility] 1.25 mg/dL 5:24 AM CDT LABORATORY-LISA TRAL LABORATORY BUN/CREAT RATIO 19 10 - 20 07/09/2022 [facility] 5:24 AM CDT LABORATORY-LISA TRAL LABORATORY eGFR 53 (L) >90 07/09/2022 [facility] mL/min/1.7 5:24 AM CDT LABORATORY-LISA 3m2 TRAL LABORATORY Comment: As of 2022, eGFR is calcu lated by the CKD-EPI creatinine equation without race adjustment. eGFR can be inf luenced by muscle mass, exercise, and diet. The reported eGFR is an estimation only and is only applicable if the renal function is stable. Specimen Anatomical Collection Method / Collection Time Recei amol Time (Source) Location / Volume Laterality Blood BLOOD SPECIMEN / Venipuncture / 07/08/2022 11:36 07/08 Unknown Unknown AM CDT 11:36 AM CDT Art Leonardo MD CHEMISTRY Performing Organization Address City/State/ZIP Code Phon e Number [facility] [address] [place] [address] LABORATORY-CENTRAL 2000 LABORATORY from Last 3 Months Insurance Payer Benefit Plan / Subscriber ID Effective Dates Phone Addre ss Type Group MEDICARE PART A MEDICARE PART A [id number] 2010-Present ATTN: CLAIMS - HB USE ONLY HB ONLY [address] [place] [address] MEDICARE PART B MEDICARE PART B [id number] 2014-Present ATTN: CLAIMS - HB USE ONLY HB ONLY [address] [place] [address] MEDICARE - PB MEDICARE PB ONLY [id number] 2014-Present ATTN: CLAIMS USE ONLY [address] [place] [address] [employer] [place] [place] [employer] [id number] 2018-Present [address] [address] [place] [address] Advance Directives Latest Code Status on File Code Status Date Activated Date Inactivated Comments Full Code 03/28/2022 11:27 AM 03/28/2022 4:55 PM Code Status Discussion: Other Full Code 08/05/2018 6:26 AM 08/05/2018 11:14 AM Code Status Discussion: Not Discussed Care Teams Honing Machine Try Out Setter Relationship Specialty Start Date End Date Art Leonardo MD PCP - General Family Practice 01/31/[address] [place] [address]
--- OUTSIDE RECORDS SUMMARY | 2022-07-11 08:00 | XMS_ITS | Encounter Summary ---
:1945 Author Organization [facility] Address [address] [place] [address] Care Team Providers Name Role Phone Unavailable Primary Care Provider Unavailable Encounter Details Date Type Department Care Team Description 06/26/2018 Abstract [facility] NAIF Singh ea Provider, Historical [address] [place] [address] Social History Tobacco Use Types Packs/Day Years Used Date Smoking Tobacco: Never Assessed Sex Assigned at Date Recorded Not on file documented as of this encounter Plan of Treatment Not on filedocumented as of this encounter Visit Diagnoses Not on filedocumented in this encounter
--- OUTSIDE RECORDS SUMMARY | 2022-07-11 08:00 | XMS_ITS | Encounter Summary ---
:1945 Author Organization [facility] Address [address] [place] [address] Care Team Providers Name Role Phone Unavailable Primary Care Provider Unavailable Reason for Visit Reason Comments Post-op Follow-up Outpatient (Routine) - Closed Specialty Diagnoses / Procedures Referred By Contact Refer red To Contact Ophthalmology Diagnoses Intraocular Lens Implant Status Post Tomi Mann Jr., [facility] NAIF Pierce M.D. [address] [place] [address] Referral ID Status Reason Start Date Expiration Date Visits Requ ested Visits Authorized [id number] Closed 06/14/2018 06/14/2019 1 1 Encounter Details Date Type Department Care Team Description 08/06/2018 Office Visit Department of Tomi Mann Intraocular Lens Ophthalmology in [place] Implant Status Post Melody [place] [address] [address] [phone] Social History Tobacco Use Types Packs/Day Years Used Date Smoking Tobacco: Never Assessed Sex Assigned at Date Recorded Not on file documented as of this encounter Progress Notes Tomi Mann M.D. - 08/06/2018 11:30 AM CDT Gildardo Huerta was seen today for Post-op Follow-up #1 Intraocular Lens Implant Status Post Doing well, status post cataract surgery with lens implant, left eye. Drops per protocol: Prednisolone or dexamethasone, 1 drop 7 x day for 2 days, then 1 drop QID in operative eye. Vigamox or Ocuflox, 1 drop 4 x day in operative eye. Voltaren or Acular, 1 drop 4 x day in operative eye. Return to office in 1 week. Shield eye at night. documented in this encounter Plan of Treatment Not on filedocumented as of this encounter Visit Diagnoses Diagnosis Intraocular Lens Implant Status Post documented in this encounter
--- OUTSIDE RECORDS SUMMARY | 2022-07-11 08:00 | XMS_ITS | Encounter Summary ---
:1945 Author Organization [facility] Address [address] [place] [address] Care Team Providers Name Role Phone Unavailable Primary Care Provider Unavailable Reason for Visit Reason Comments Post-op Follow-up Outpatient (Routine) - Closed Specialty Diagnoses / Procedures Referred By Contact Refer red To Contact Ophthalmology Diagnoses Intraocular Lens Implant Status Post Tomi Mann Jr., [facility] NAIF Pierce M.D. [address] [place] [address] Referral ID Status Reason Start Date Expiration Date Visits Requ ested Visits Authorized [id number] Closed 06/14/2018 06/14/2019 1 1 Encounter Details Date Type Department Care Team Description 08/13/2018 Office Visit Department of Tomi Mann Intraocular Lens Ophthalmology in [place] Implant Status Post Melody [place] [address] [phone] [phone] Social History Tobacco Use Types Packs/Day Years Used Date Smoking Tobacco: Never Assessed Sex Assigned at Date Recorded Not on file documented as of this encounter Progress Notes Tomi Mann M.D. - 08/13/2018 9:00 AM CDT Gildardo Huerta was seen today for Post-op Follow-up #1 Intraocular Lens Implant Status Post Doing well, status post cataract surgery with lens implant, left eye. Drops per protocol: In operative eye: Prednisolone or dexamethasone, 1 drop 3 x day for 3 days, then twice a day for one week then once a day for a week, then discontinue Voltaren or Acular, 1 drop 3 x day for 3 days, then twice a day for one week then once a day for a week, then discontinue Discontinue Vigamox or Ocuflox. May discontinue shield at night. Return to office in 3 weeks. documented in this encounter Plan of Treatment Not on filedocumented as of this encounter Visit Diagnoses Diagnosis Intraocular Lens Implant Status Post documented in this encounter
--- OUTSIDE RECORDS SUMMARY | 2022-07-11 08:00 | XMS_ITS | Encounter Summary ---
:1945 Author Organization [facility] Address [address] [place] [address] Care Team Providers Name Role Phone Unavailable Primary Care Provider Unavailable Reason for Visit Reason Comments Diabetic Eye Exam Appointment Request (Routine) - Closed Specialty Diagnoses / Procedures Referred By Contact Refer red To Contact Ophthalmology Referral ID Status Reason Start Date Expiration Date Visits Requ ested Visits Authorized [id number] Closed 01/30/2021 01/30/2022 1 1 Encounter Details Date Type Department Care Team Description 04/29/2021 Comprehensive Visit Department of Tomi Mann es Mellitus Type 2 (HCC) (Primary Dx); Ophthalmology rafaela Martinez Jr., M.D. Intraocular Lens Implant Status Post [place], [place] [address] [place] [phone] Social History Tobacco Use Types Packs/Day Years Used Date Smoking Tobacco: Never Assessed Sex Assigned at Date Recorded Not on file documented as of this encounter Progress Notes Tomi Mann Jr., M.D. - 04/29/2021 2:00 PM CDT Gildardo Huerta was seen today for Diabetic Eye Exam #1 Diabetes Mellitus Type 2 (HCC) #2 Intraocular Lens Implant Status Post #1 No diabetic retinopathy or macular edema #2 Stable both eyes RTO 1 year documented in this encounter Plan of Treatment Not on filedocumented as of this encounter Visit Diagnoses Diagnosis Diabetes Mellitus Type 2 (HCC) - Primary Intraocular Lens Implant Status Post documented in this encounter
--- NOTE | 2022-07-11 08:15 | CRLHL7_ITS ---
For Patients: As a result of the Century Cures Act, medical imaging exams and procedure reports are released immediately into your electronic medical record. You may view this report before your referring provider. If you have questions, please contact your health care provider. Technique: Double contrast examination was performed with barium. Indication: Dysphagia. Comparison: None. Findings: Esophagus: Normal morphology and motility. No stricture or mass. No hiatal hernia. Gastroesophageal reflux: Demonstrated spontaneously with patient in prone positioning. Fluoroscopy time: 29 seconds. Impression: Gastroesophageal reflux. Dictated by Noel Engle MD @ 07/11/2022 9:11:40 AM (Electronically Signed)
== END 2022-07-11 07:58 | disposition home or self-care (01) ==
LOC: RAD 07:58
PROVIDERS: PCP Surgery; Visit Provider Surgery
DX: R13.10 Dysphagia, unspecified (principal); K21.9 Gastro-esophageal reflux disease without esophagitis
CPT/HCPCS: 74221

== ENCOUNTER 2022-11-21 15:00 | Outpatient (RCR) | payer MEDICARE, BC, SELFPAY ==
--- NOTE | 2022-06-17 15:25 | ONC.NURNOTE ---
Here for lab draw for Xtandi: reports some reflux and constipation rec miralax daily with senna 2 tabs as needed if constipation continues increase senna as needed if needed daughter to make appt with PCP regarding reflux
[2022-06-17 15:29] LABS: Basophils Absolute Auto 0.03 K/uL (0.00-0.30); Basophils Percent Auto 0.5 % (0.0-3.0); Eosinophils Absolute Auto 0.24 K/uL (0.00-0.50); Eosinophils Percent Auto 3.6 % (0.0-7.0); Hematocrit 33.4 % (37.0-53.0); Hemoglobin* 11.3 gm/dL (13.5-17.5); Immature Granulocytes Abs Auto 0.06 K/uL (0.00-0.30); Lymphocytes Percent Auto 19.9 % (20-44); Mean Corpuscular HGB Conc 34 gm/dL (32-36); Mean Corpuscular Hemoglobin 33 pg (26-34); Mean Corpuscular Volume 96 fL (80-100); Monocytes Percent Auto 7.8 % (0.0-11.0); Neutrophils Absolute Auto 4.46 K/uL (1.7-7.0); Neutrophils Percent Auto 67.3 % (42.0-72.0); Platelet Count* 233 K/uL (140-440); RDW Coefficient of Variation % 12.8 % (11.5-15.5); Red Blood Count 3.47 m/uL (4.30-5.90); White Blood Count* 6.63 K/uL (4.50-11.00)
[2022-06-17 15:37] LABS: Slide Review Reflex Yes
[2022-06-17 15:55] LABS: Chloride* 103 mmol/L (96-114); Potassium* 4.5 mmol/L (3.6-5.1); Sodium* 137 mmol/L (135-149)
[2022-06-17 15:57] LABS: Bilirubin Total* 0.2 mg/dL (0.1-1.5); Creatinine* 1.5 mg/dL (0.5-1.5); Estimated Glomerular Filt Rate 48 ml/min
[2022-06-17 15:58] LABS: Alanine Aminotransferase* 14 U/L (4-50); Alkaline Phosphatase* 120 U/L (40-150); Aspartate Amino Transferase* 20 U/L (12-35); Blood Urea Nitrogen* 33 mg/dL (7-30); Calcium* 8.7 mg/dL (8.4-10.6); Carbon Dioxide* 25 mmol/L (20-32); Glucose* 200 mg/dL (60-115); Total Protein* 7.1 g/dL (6.0-8.3)
[2022-06-17 16:27] LABS: PSA Diagnostic* 0.25 ng/mL (0.10-4.00)
--- NOTE | 2022-06-19 16:12 | ONC.NURNOTE ---
Lab results reviewed and called to codie Ralph
[2022-06-25 14:43] LABS: Slide Review Acceptable Review (Acceptable)
[2022-06-25] MEDS: LEUPROLIDE ACETATE 22.5 MG (SQ) SYRINGE SUBCUT (15:25)
[2022-07-23 15:53] LABS: Basophils Absolute Auto 0.03 K/uL (0.00-0.30); Basophils Percent Auto 0.5 % (0.0-3.0); Eosinophils Absolute Auto 0.23 K/uL (0.00-0.50); Eosinophils Percent Auto 3.6 % (0.0-7.0); Hemoglobin* 10.6 gm/dL (13.5-17.5); Immature Granulocytes Abs Auto 0.03 K/uL (0.00-0.30); Lymphocytes Absolute Auto 1.32 K/uL (0.90-2.90); Lymphocytes Percent Auto 20.5 % (20-44); Mean Corpuscular HGB Conc 33 gm/dL (32-36); Mean Corpuscular Hemoglobin 33 pg (26-34); Mean Corpuscular Volume 99 fL (80-100); Monocytes Percent Auto 9.6 % (0.0-11.0); Neutrophils Absolute Auto 4.22 K/uL (1.7-7.0); Neutrophils Percent Auto 65.3 % (42.0-72.0); Platelet Count* 239 K/uL (140-440); Red Blood Count 3.23 m/uL (4.30-5.90); White Blood Count* 6.45 K/uL (4.50-11.00)
[2022-07-23 15:59] LABS: Slide Review Reflex No
[2022-07-23 16:13] LABS: Chloride* 104 mmol/L (96-114); Potassium* 4.9 mmol/L (3.6-5.1); Sodium* 138 mmol/L (135-149)
[2022-07-23 16:16] LABS: Alanine Aminotransferase* 13 U/L (4-50); Alkaline Phosphatase* 98 U/L (40-150); Aspartate Amino Transferase* 18 U/L (12-35); Bilirubin Total* 0.2 mg/dL (0.1-1.5); Blood Urea Nitrogen* 25 mg/dL (7-30); Carbon Dioxide* 25 mmol/L (20-32); Creatinine* 1.5 mg/dL (0.5-1.5); Estimated Glomerular Filt Rate 48 ml/min; Glucose* 108 mg/dL (60-115)
[2022-07-23 16:17] LABS: Calcium* 8.4 mg/dL (8.4-10.6)
--- NOTE | 2022-07-24 15:20 | ONC.NURNOTE ---
Lab results reviewed by Maria T Raines and called to daughter Ramo watching Hg reports no other concerns with Xtandi lab and follow up next month
[2022-08-18 15:52] LABS: Basophils Absolute Auto 0.02 K/uL (0.00-0.30); Basophils Percent Auto 0.3 % (0.0-3.0); Eosinophils Absolute Auto 0.24 K/uL (0.00-0.50); Eosinophils Percent Auto 3.9 % (0.0-7.0); Hematocrit 30.7 % (37.0-53.0); Hemoglobin* 10.3 gm/dL (13.5-17.5); Immature Granulocytes Abs Auto 0.03 K/uL (0.00-0.30); Lymphocytes Absolute Auto 1.28 K/uL (0.90-2.90); Lymphocytes Percent Auto 20.6 % (20-44); Mean Corpuscular HGB Conc 34 gm/dL (32-36); Mean Corpuscular Hemoglobin 33 pg (26-34); Mean Corpuscular Volume 100 fL (80-100); Monocytes Percent Auto 9.5 % (0.0-11.0); Neutrophils Absolute Auto 4.06 K/uL (1.7-7.0); Neutrophils Percent Auto 65.2 % (42.0-72.0); Platelet Count* 222 K/uL (140-440); RDW Coefficient of Variation % 12.4 % (11.5-15.5); Red Blood Count 3.08 m/uL (4.30-5.90); White Blood Count* 6.22 K/uL (4.50-11.00)
[2022-08-18 16:08] LABS: Albumin* 3.9 g/dL (3.3-5.0); Chloride* 105 mmol/L (96-114); Potassium* 4.7 mmol/L (3.6-5.1); Sodium* 137 mmol/L (135-149)
[2022-08-18 16:10] LABS: Alanine Aminotransferase* 12 U/L (4-50); Alkaline Phosphatase* 104 U/L (40-150); Aspartate Amino Transferase* 16 U/L (12-35); Bilirubin Total* 0.2 mg/dL (0.1-1.5); Blood Urea Nitrogen* 33 mg/dL (7-30); Carbon Dioxide* 23 mmol/L (20-32); Creatinine* 1.6 mg/dL (0.5-1.5); Estimated Glomerular Filt Rate 44 ml/min; Glucose* 189 mg/dL (60-115); Slide Review Reflex No; Total Protein* 6.6 g/dL (6.0-8.3)
[2022-08-18 16:11] LABS: Calcium* 8.3 mg/dL (8.4-10.6)
[2022-09-23 15:06] LABS: Basophils Absolute Auto 0.03 K/uL (0.00-0.30); Basophils Percent Auto 0.5 % (0.0-3.0); Eosinophils Absolute Auto 0.22 K/uL (0.00-0.50); Hematocrit 32.5 % (37.0-53.0); Hemoglobin* 10.8 gm/dL (13.5-17.5); Immature Granulocytes Abs Auto 0.03 K/uL (0.00-0.30); Immature Granulocytes Pct Auto 0.5 %; Lymphocytes Absolute Auto 1.29 K/uL (0.90-2.90); Lymphocytes Percent Auto 23.6 % (20-44); Mean Corpuscular HGB Conc 33 gm/dL (32-36); Mean Corpuscular Hemoglobin 33 pg (26-34); Mean Corpuscular Volume 99 fL (80-100); Monocytes Percent Auto 11.7 % (0.0-11.0); Neutrophils Absolute Auto 3.26 K/uL (1.7-7.0); Neutrophils Percent Auto 59.7 % (42.0-72.0); Platelet Count* 235 K/uL (140-440); RDW Coefficient of Variation % 12.1 % (11.5-15.5); Red Blood Count 3.28 m/uL (4.30-5.90); White Blood Count* 5.47 K/uL (4.50-11.00)
[2022-09-23 15:09] VITALS: BP 178/76; PULSE 78; RESP 16; TEMP 36.3; O2SAT 100
[2022-09-23 15:15] VITALS: BP 178/76; PULSE 78; RESP 16; TEMP 36.3; O2SAT 100
[2022-09-23 15:18] LABS: Slide Review Reflex No
[2022-09-23 15:33] LABS: Albumin* 4.3 g/dL (3.3-5.0); Chloride* 107 mmol/L (96-114)
[2022-09-23 15:34] LABS: Potassium* 4.5 mmol/L (3.6-5.1); Sodium* 140 mmol/L (135-149)
[2022-09-23 15:36] LABS: Alkaline Phosphatase* 105 U/L (40-150); Aspartate Amino Transferase* 19 U/L (12-35); Bilirubin Total* 0.3 mg/dL (0.1-1.5); Blood Urea Nitrogen* 31 mg/dL (7-30); Carbon Dioxide* 25 mmol/L (20-32); Creatinine* 1.6 mg/dL (0.5-1.5); Estimated Glomerular Filt Rate 44 ml/min; Total Protein* 7.4 g/dL (6.0-8.3)
[2022-09-23 15:37] LABS: Alanine Aminotransferase* 15 U/L (4-50); Calcium* 9.3 mg/dL (8.4-10.6); Glucose* 114 mg/dL (60-115)
[2022-09-23] MEDS: LEUPROLIDE ACETATE 22.5 MG (SQ) SYRINGE SUBCUT (15:44)
[2022-09-23 16:06] LABS: PSA Diagnostic* < 0.06 ng/mL (0.10-4.00)
[2022-09-23 16:17] LABS: Iron* 52 ug/dL (49-181)
[2022-09-23 16:27] LABS: Percent Iron Saturation 15 % (20-50); Total Iron Binding Capacity 348 ug/dL (261-462)
--- NOTE | 2022-09-24 12:57 | ONC.NURNOTE ---
Lab results reviewed by Dr Morales Hg improved, PSA WNL next lab and appt is 10/22/22 message left with laya Vedia xtandi continues at current dose 160 mg/day
[2022-10-22 15:13] LABS: Basophils Absolute Auto 0.02 K/uL (0.00-0.30); Basophils Percent Auto 0.4 % (0.0-3.0); Eosinophils Absolute Auto 0.19 K/uL (0.00-0.50); Eosinophils Percent Auto 3.5 % (0.0-7.0); Hematocrit 32.4 % (37.0-53.0); Hemoglobin* 10.7 gm/dL (13.5-17.5); Immature Granulocytes Abs Auto 0.02 K/uL (0.00-0.30); Immature Granulocytes Pct Auto 0.4 %; Lymphocytes Absolute Auto 1.41 K/uL (0.90-2.90); Lymphocytes Percent Auto 25.8 % (20-44); Mean Corpuscular HGB Conc 33 gm/dL (32-36); Mean Corpuscular Hemoglobin 32 pg (26-34); Mean Corpuscular Volume 98 fL (80-100); Monocytes Percent Auto 9.2 % (0.0-11.0); Neutrophils Absolute Auto 3.32 K/uL (1.7-7.0); Neutrophils Percent Auto 60.7 % (42.0-72.0); Platelet Count* 233 K/uL (140-440); RDW Coefficient of Variation % 12.3 % (11.5-15.5); Red Blood Count 3.31 m/uL (4.30-5.90); White Blood Count* 5.46 K/uL (4.50-11.00)
[2022-10-22 15:17] LABS: Slide Review Reflex No
[2022-10-22 15:27] LABS: Albumin* 4.2 g/dL (3.3-5.0); Chloride* 110 mmol/L (96-114); Potassium* 4.6 mmol/L (3.6-5.1); Sodium* 141 mmol/L (135-149)
[2022-10-22 15:29] LABS: Bilirubin Total* 0.3 mg/dL (0.1-1.5); Carbon Dioxide* 24 mmol/L (20-32); Creatinine* 1.6 mg/dL (0.5-1.5); Estimated Glomerular Filt Rate 44 ml/min
[2022-10-22 15:30] LABS: Alanine Aminotransferase* 13 U/L (4-50); Alkaline Phosphatase* 96 U/L (40-150); Aspartate Amino Transferase* 17 U/L (12-35); Blood Urea Nitrogen* 29 mg/dL (7-30); Calcium* 8.7 mg/dL (8.4-10.6); Glucose* 112 mg/dL (60-115); Total Protein* 7.3 g/dL (6.0-8.3)
--- NOTE | 2022-10-30 09:56 | ONC.NURNOTE ---
Daughter called, patient needs refills of enzalutamide sent to [facility] he has a week supply left
[2022-11-21 15:43] LABS: Basophils Absolute Auto 0.02 K/uL (0.00-0.30); Basophils Percent Auto 0.3 % (0.0-3.0); Eosinophils Absolute Auto 0.23 K/uL (0.00-0.50); Eosinophils Percent Auto 3.3 % (0.0-7.0); Hematocrit 31.9 % (37.0-53.0); Hemoglobin* 10.6 gm/dL (13.5-17.5); Immature Granulocytes Abs Auto 0.02 K/uL (0.00-0.30); Immature Granulocytes Pct Auto 0.3 %; Lymphocytes Absolute Auto 1.63 K/uL (0.90-2.90); Lymphocytes Percent Auto 23.6 % (20-44); Mean Corpuscular HGB Conc 33 gm/dL (32-36); Mean Corpuscular Hemoglobin 32 pg (26-34); Mean Corpuscular Volume 97 fL (80-100); Monocytes Percent Auto 10.1 % (0.0-11.0); Neutrophils Percent Auto 62.4 % (42.0-72.0); Platelet Count* 246 K/uL (140-440); RDW Coefficient of Variation % 12.4 % (11.5-15.5); Red Blood Count 3.28 m/uL (4.30-5.90)
[2022-11-21 15:45] LABS: Slide Review Reflex No
[2022-11-21 15:48] LABS: Chloride* 108 mmol/L (96-114); Sodium* 139 mmol/L (135-149)
[2022-11-21 15:49] LABS: Potassium* 4.9 mmol/L (3.6-5.1)
[2022-11-21 15:51] LABS: Alanine Aminotransferase* 15 U/L (4-50); Alkaline Phosphatase* 97 U/L (40-150); Aspartate Amino Transferase* 17 U/L (12-35); Bilirubin Total* 0.4 mg/dL (0.1-1.5); Blood Urea Nitrogen* 31 mg/dL (7-30); Carbon Dioxide* 21 mmol/L (20-32); Creatinine* 1.6 mg/dL (0.5-1.5); Estimated Glomerular Filt Rate 44 ml/min; Glucose* 75 mg/dL (60-115); Total Protein* 7.1 g/dL (6.0-8.3)
[2022-11-21 15:52] LABS: Calcium* 8.9 mg/dL (8.4-10.6)
--- NOTE | 2022-11-28 11:53 | ONC.NURNOTE ---
Lab results reviewed and called to Courtney Borges as stable Jessica reports no concerns or changes her father has started iron supplement to address anemia next appts set for 12/22/22 with lab, provider and chan castaneda
== END 2022-12-14 23:59 | disposition home or self-care (01) ==
LOC: CCIC 15:00
PROVIDERS: PCP Surgery; Referring Provider Surgery; Visit Provider Internal Medicine Hematology & Oncology
DX: C61 Malignant neoplasm of prostate (principal); C79.51 Secondary malignant neoplasm of bone
CPT/HCPCS: 36415; 80053; 82728; 83540; 83550; 84153; 85025; 96401; 99212; 99214; 99215; J9217

== ENCOUNTER 2023-03-23 09:00 | Outpatient (RCR) | payer MEDICARE, BC, SELFPAY ==
[2022-12-22] MEDS: LEUPROLIDE ACETATE 22.5 MG (SQ) SYRINGE SUBCUT (14:30)
[2022-12-22 15:35] LABS: Basophils Absolute Auto 0.02 K/uL (0.00-0.30); Basophils Percent Auto 0.3 % (0.0-3.0); Eosinophils Absolute Auto 0.21 K/uL (0.00-0.50); Eosinophils Percent Auto 3.5 % (0.0-7.0); Hematocrit 30.7 % (37.0-53.0); Hemoglobin* 10.2 gm/dL (13.5-17.5); Immature Granulocytes Abs Auto 0.04 K/uL (0.00-0.30); Immature Granulocytes Pct Auto 0.7 %; Mean Corpuscular HGB Conc 33 gm/dL (32-36); Mean Corpuscular Hemoglobin 32 pg (26-34); Mean Corpuscular Volume 98 fL (80-100); Monocytes Percent Auto 8.3 % (0.0-11.0); Neutrophils Absolute Auto 4.03 K/uL (1.7-7.0); Neutrophils Percent Auto 67.2 % (42.0-72.0); Platelet Count* 236 K/uL (140-440); RDW Coefficient of Variation % 12.9 % (11.5-15.5); Red Blood Count 3.15 m/uL (4.30-5.90)
[2022-12-22 15:43] LABS: Slide Review Reflex No
[2022-12-22 15:55] LABS: Chloride* 108 mmol/L (96-114); Potassium* 4.8 mmol/L (3.6-5.1); Sodium* 139 mmol/L (135-149)
[2022-12-22 15:57] LABS: Bilirubin Total* 0.4 mg/dL (0.1-1.5); Carbon Dioxide* 24 mmol/L (20-32); Creatinine* 1.3 mg/dL (0.5-1.5); Estimated Glomerular Filt Rate 57 ml/min
[2022-12-22 15:58] LABS: Alanine Aminotransferase* 14 U/L (4-50); Alkaline Phosphatase* 105 U/L (40-150); Aspartate Amino Transferase* 17 U/L (12-35); Blood Urea Nitrogen* 30 mg/dL (7-30); Calcium* 8.8 mg/dL (8.4-10.6); Glucose* 163 mg/dL (60-115); Total Protein* 7.2 g/dL (6.0-8.3)
[2023-01-19 15:36] LABS: Basophils Absolute Auto 0.02 K/uL (0.00-0.30); Basophils Percent Auto 0.3 % (0.0-3.0); Eosinophils Absolute Auto 0.21 K/uL (0.00-0.50); Eosinophils Percent Auto 3.7 % (0.0-7.0); Hematocrit 30.1 % (37.0-53.0); Immature Granulocytes Abs Auto 0.04 K/uL (0.00-0.30); Immature Granulocytes Pct Auto 0.7 %; Lymphocytes Absolute Auto 1.34 K/uL (0.90-2.90); Lymphocytes Percent Auto 23.3 % (20-44); Mean Corpuscular HGB Conc 33 gm/dL (32-36); Mean Corpuscular Hemoglobin 32 pg (26-34); Mean Corpuscular Volume 97 fL (80-100); Monocytes Percent Auto 9.7 % (0.0-11.0); Neutrophils Absolute Auto 3.58 K/uL (1.7-7.0); Neutrophils Percent Auto 62.3 % (42.0-72.0); Platelet Count* 245 K/uL (140-440); RDW Coefficient of Variation % 12.7 % (11.5-15.5); White Blood Count* 5.75 K/uL (4.50-11.00)
[2023-01-19 15:38] LABS: Slide Review Reflex No
[2023-01-19 15:49] LABS: Albumin* 3.9 g/dL (3.3-5.0); Chloride* 105 mmol/L (96-114)
[2023-01-19 15:50] LABS: Potassium* 4.9 mmol/L (3.6-5.1); Sodium* 137 mmol/L (135-149)
[2023-01-19 15:52] LABS: Alanine Aminotransferase* 14 U/L (4-50); Alkaline Phosphatase* 107 U/L (40-150); Aspartate Amino Transferase* 17 U/L (12-35); Bilirubin Total* 0.4 mg/dL (0.1-1.5); Blood Urea Nitrogen* 28 mg/dL (7-30); Carbon Dioxide* 26 mmol/L (20-32); Creatinine* 1.3 mg/dL (0.5-1.5); Estimated Glomerular Filt Rate 57 ml/min; Total Protein* 7.1 g/dL (6.0-8.3)
[2023-01-19 15:53] LABS: Glucose* 102 mg/dL (60-115)
[2023-01-19 16:29] LABS: PSA Diagnostic* < 0.06 ng/mL (0.10-4.00)
--- NOTE | 2023-01-20 11:09 | ONC.NURNOTE ---
Addendum entered by Amarilys Padilla RN 01/21/23 12:58: Pt's daughter Ramo called today stating patient is taking Vitron-C 65mg daily. Original Note: Lab results reviewed and called to daughter Ramo noted ongoing decline in Hg patient started iron several months ag0 vedia to call back with name, dosage, frequency- ordered from [facility] patient has appt with PCP next week for diabetes follow up- [place] [facility] is Dr Leonardo, but [place] so care is being covered by another PCP- laya unsure who they are seeing discussed assessing for blood in urine/stool Saea will review lab with PCP next week
[2023-02-17 14:32] LABS: Basophils Absolute Auto 0.02 K/uL (0.00-0.30); Basophils Percent Auto 0.3 % (0.0-3.0); Eosinophils Percent Auto 3.4 % (0.0-7.0); Hematocrit 31.5 % (37.0-53.0); Hemoglobin* 10.4 gm/dL (13.5-17.5); Immature Granulocytes Abs Auto 0.08 K/uL (0.00-0.30); Immature Granulocytes Pct Auto 1.4 %; Lymphocytes Absolute Auto 1.29 K/uL (0.90-2.90); Lymphocytes Percent Auto 22.2 % (20-44); Mean Corpuscular HGB Conc 33 gm/dL (32-36); Mean Corpuscular Hemoglobin 32 pg (26-34); Mean Corpuscular Volume 98 fL (80-100); Monocytes Percent Auto 9.8 % (0.0-11.0); Neutrophils Absolute Auto 3.64 K/uL (1.7-7.0); Neutrophils Percent Auto 62.9 % (42.0-72.0); Platelet Count* 236 K/uL (140-440); RDW Coefficient of Variation % 12.8 % (11.5-15.5); Red Blood Count 3.23 m/uL (4.30-5.90)
[2023-02-17 14:38] LABS: Slide Review Reflex No
[2023-02-17 14:51] LABS: Albumin* 4.2 g/dL (3.3-5.0); Chloride* 105 mmol/L (96-114)
[2023-02-17 14:52] LABS: Potassium* 4.9 mmol/L (3.6-5.1); Sodium* 138 mmol/L (135-149)
[2023-02-17 14:54] LABS: Aspartate Amino Transferase* 18 U/L (12-35); Bilirubin Total* 0.4 mg/dL (0.1-1.5); Blood Urea Nitrogen* 31 mg/dL (7-30); Carbon Dioxide* 24 mmol/L (20-32); Creatinine* 1.4 mg/dL (0.5-1.5); Estimated Glomerular Filt Rate 52 ml/min; Total Protein* 7.4 g/dL (6.0-8.3)
[2023-02-17 14:55] LABS: Alanine Aminotransferase* 15 U/L (4-50); Alkaline Phosphatase* 97 U/L (40-150); Calcium* 8.9 mg/dL (8.4-10.6); Glucose* 104 mg/dL (60-115)
--- NOTE | 2023-03-20 14:56 | URNOTE ---
REceived request for prior authorization for Andres ([id number]). Pt has medicare. Prior authorization is not required as services are based on medical necessity and follow medicare guidelines
[2023-03-20 15:22] LABS: Basophils Absolute Auto 0.04 K/uL (0.00-0.30); Basophils Percent Auto 0.7 % (0.0-3.0); Eosinophils Percent Auto 3.4 % (0.0-7.0); Hematocrit 33.7 % (37.0-53.0); Immature Granulocytes Abs Auto 0.04 K/uL (0.00-0.30); Immature Granulocytes Pct Auto 0.7 %; Lymphocytes Absolute Auto 1.33 K/uL (0.90-2.90); Lymphocytes Percent Auto 22.5 % (20-44); Mean Corpuscular HGB Conc 33 gm/dL (32-36); Mean Corpuscular Hemoglobin 32 pg (26-34); Mean Corpuscular Volume 98 fL (80-100); Monocytes Percent Auto 8.6 % (0.0-11.0); Neutrophils Percent Auto 64.1 % (42.0-72.0); Platelet Count* 246 K/uL (140-440); RDW Coefficient of Variation % 12.8 % (11.5-15.5); Red Blood Count 3.45 m/uL (4.30-5.90); White Blood Count* 5.92 K/uL (4.50-11.00)
[2023-03-20 15:28] LABS: Slide Review Reflex No
[2023-03-20 15:34] LABS: Albumin* 4.3 g/dL (3.3-5.0)
[2023-03-20 15:35] LABS: Chloride* 105 mmol/L (96-114); Sodium* 138 mmol/L (135-149)
[2023-03-20 15:37] LABS: Bilirubin Total* 0.4 mg/dL (0.1-1.5); Creatinine* 1.5 mg/dL (0.5-1.5); Estimated Glomerular Filt Rate 48 ml/min
[2023-03-20 15:38] LABS: Alanine Aminotransferase* 14 U/L (4-50); Alkaline Phosphatase* 100 U/L (40-150); Aspartate Amino Transferase* 17 U/L (12-35); Blood Urea Nitrogen* 34 mg/dL (7-30); Calcium* 9.1 mg/dL (8.4-10.6); Carbon Dioxide* 23 mmol/L (20-32); Glucose* 93 mg/dL (60-115); Total Protein* 7.6 g/dL (6.0-8.3)
[2023-03-23 08:53] VITALS: BP 155/75
[2023-03-23] MEDS: LEUPROLIDE ACETATE 22.5 MG (SQ) SYRINGE SUBCUT (09:10)
[2023-03-23 09:57] LABS: Iron* 60 ug/dL (49-181)
[2023-03-23 10:06] LABS: Percent Iron Saturation 16 % (20-50); Total Iron Binding Capacity 378 ug/dL (261-462)
[2023-03-23 10:33] LABS: Ferritin* 81.6 ng/mL (17.9-464.0)
== END 2023-06-20 23:59 | disposition home or self-care (01) ==
LOC: CCIC 09:00
PROVIDERS: Internal Medicine Medical Oncology; PCP Surgery; Referring Provider Surgery; Visit Provider Internal Medicine Hematology & Oncology
DX: C61 Malignant neoplasm of prostate (principal); C79.51 Secondary malignant neoplasm of bone; D64.9 Anemia, unspecified; F41.9 Anxiety disorder, unspecified; I10 Essential (primary) hypertension; R59.0 Localized enlarged lymph nodes; Z79.818 Long term (current) use of other agents affecting estrogen receptors and estrogen levels
CPT/HCPCS: 36415; 80053; 82728; 83540; 83550; 84153; 85025; 96401; 99212; 99214; 99215; J9217

== ENCOUNTER 2023-09-21 15:30 | Outpatient (RCR) | payer MEDICARE, BC, SELFPAY ==
[2023-06-22 14:47] VITALS: BP 149/63; PULSE 86; RESP 18; TEMP 36.9; O2SAT 99
[2023-06-22] MEDS: LEUPROLIDE ACETATE 22.5 MG (SQ) SYRINGE SUBCUT (15:06)
[2023-06-22 15:34] LABS: Basophils Absolute Auto 0.03 K/uL (0.00-0.30); Basophils Percent Auto 0.5 % (0.0-3.0); Eosinophils Absolute Auto 0.23 K/uL (0.00-0.50); Eosinophils Percent Auto 3.7 % (0.0-7.0); Hematocrit 34.6 % (37.0-53.0); Hemoglobin* 11.3 gm/dL (13.5-17.5); Immature Granulocytes Abs Auto 0.04 K/uL (0.00-0.30); Immature Granulocytes Pct Auto 0.6 %; Lymphocytes Absolute Auto 1.31 K/uL (0.90-2.90); Lymphocytes Percent Auto 20.8 % (20-44); Mean Corpuscular HGB Conc 33 gm/dL (32-36); Mean Corpuscular Hemoglobin 31 pg (26-34); Mean Corpuscular Volume 95 fL (80-100); Monocytes Percent Auto 9.2 % (0.0-11.0); Neutrophils Percent Auto 65.2 % (42.0-72.0); Platelet Count* 245 K/uL (140-440); Red Blood Count 3.65 m/uL (4.30-5.90); White Blood Count* 6.29 K/uL (4.50-11.00)
[2023-06-22 15:36] LABS: Slide Review Reflex No
[2023-06-22 15:49] LABS: Albumin* 4.1 g/dL (3.3-5.0); Chloride* 104 mmol/L (96-114)
[2023-06-22 15:50] LABS: Sodium* 137 mmol/L (135-149)
[2023-06-22 15:52] LABS: Alanine Aminotransferase* 16 U/L (4-50); Alkaline Phosphatase* 93 U/L (40-150); Aspartate Amino Transferase* 20 U/L (12-35); Bilirubin Total* 0.3 mg/dL (0.1-1.5); Blood Urea Nitrogen* 36 mg/dL (7-30); Carbon Dioxide* 23 mmol/L (20-32); Creatinine* 1.7 mg/dL (0.5-1.5); Estimated Glomerular Filt Rate 41 ml/min; Glucose* 107 mg/dL (60-115); Total Protein* 7.3 g/dL (6.0-8.3)
[2023-06-22 15:53] LABS: Calcium* 8.7 mg/dL (8.4-10.6)
[2023-06-22 16:39] LABS: PSA Diagnostic* < 0.06 ng/mL (0.10-4.00)
--- NOTE | 2023-06-25 12:22 | ONC.NURNOTE ---
Message left on patient's voicemail letting him know that Dr. Morales refilled his Diazepam but will no longer refill it and he needs to set appointment up with primary for further refills
--- NOTE | 2023-06-30 11:31 | ONC.NURNOTE ---
Lab and next appts discussed Creat noted and discussed hydration options with laya Ralph Next appt is VV with Dr Morales-no additional lab ordered
[2023-09-18 15:48] LABS: Basophils Absolute Auto 0.02 K/uL (0.00-0.30); Basophils Percent Auto 0.3 % (0.0-3.0); Eosinophils Absolute Auto 0.26 K/uL (0.00-0.50); Eosinophils Percent Auto 4.4 % (0.0-7.0); Hematocrit 33.8 % (37.0-53.0); Hemoglobin* 11.1 gm/dL (13.5-17.5); Immature Granulocytes Abs Auto 0.03 K/uL (0.00-0.30); Immature Granulocytes Pct Auto 0.5 %; Lymphocytes Absolute Auto 1.23 K/uL (0.90-2.90); Lymphocytes Percent Auto 20.6 % (20-44); Mean Corpuscular HGB Conc 33 gm/dL (32-36); Mean Corpuscular Hemoglobin 32 pg (26-34); Mean Corpuscular Volume 96 fL (80-100); Monocytes Percent Auto 8.9 % (0.0-11.0); Neutrophils Absolute Auto 3.89 K/uL (1.7-7.0); Neutrophils Percent Auto 65.3 % (42.0-72.0); Platelet Count* 223 K/uL (140-440); RDW Coefficient of Variation % 13.3 % (11.5-15.5); Red Blood Count 3.52 m/uL (4.30-5.90); White Blood Count* 5.96 K/uL (4.50-11.00)
[2023-09-18 15:50] LABS: Slide Review Reflex No
[2023-09-18 16:02] LABS: Alanine Aminotransferase* 14 U/L (4-50); Aspartate Amino Transferase* 21 U/L (12-35); Blood Urea Nitrogen* 32 mg/dL (7-30); Glucose* 124 mg/dL (60-115)
[2023-09-18 17:20] LABS: Chloride* 104 mmol/L (96-114)
[2023-09-18 17:21] LABS: Potassium* 5.3 mmol/L (3.6-5.1); Sodium* 138 mmol/L (135-149)
[2023-09-18 17:23] LABS: Alkaline Phosphatase* 115 U/L (40-150); Anion Gap 11 mEq/L (7-15); Bilirubin Total* 0.2 mg/dL (0.1-1.5); Carbon Dioxide* 23 mmol/L (20-32); Creatinine* 1.5 mg/dL (0.5-1.5); Estimated Glomerular Filt Rate 47 ml/min; Total Protein* 7.1 g/dL (6.0-8.3)
[2023-09-18 18:54] LABS: PSA Diagnostic* < 0.06 ng/mL (0.10-4.00)
[2023-09-21] MEDS: LEUPROLIDE ACETATE 22.5 MG (SQ) SYRINGE SUBCUT (15:45)
--- NOTE | 2023-11-20 14:33 | ONC.NURNOTE ---
Addendum entered by Cherelle Espinoza RN 12/01/23 10:53: [facility] is not in network- so on 11/23/23 Xtandi RX sent to [facility] Original Note: Xtandi RX faxed to [facility] with demographics, med list, insurance, and prescription [phone]
--- NOTE | 2023-11-30 08:03 | ONC.NURNOTE ---
[facility] called to get pts daughter Finn phone number to talk to her pts eunice.
--- NOTE | 2023-12-01 10:53 | ONC.NURNOTE ---
regarding pharmacy insurance change it turns out that [employer] will continue to cover prescription dispensing from [facility] for Xtandi- [facility] is the [facility] and patients drug coverage changed to [employer] from [facility] copay is $4 no further action needed for Rx transfer- [facility] is aware that they are not dispensing pharmacy
== END 2023-12-19 23:59 | disposition home or self-care (01) ==
LOC: CCIC 15:30
PROVIDERS: PCP Surgery; Referring Provider Surgery; Visit Provider Internal Medicine Hematology & Oncology
DX: C61 Malignant neoplasm of prostate (principal); C79.51 Secondary malignant neoplasm of bone; D64.9 Anemia, unspecified; K59.00 Constipation, unspecified; F41.9 Anxiety disorder, unspecified; E87.5 Hyperkalemia; I73.9 Peripheral vascular disease, unspecified
CPT/HCPCS: 36415; 80053; 84153; 85025; 96401; 99212; 99214; J9217

== ENCOUNTER 2024-03-10 20:54 | Emergency (ER) | payer MEDICARE, BC, SELFPAY ==
[2024-03-10 21:28] VITALS: BP 170/70; PULSE 92; RESP 18; TEMP 36.7; O2SAT 96; BMI 38.1
--- NOTE | 2024-03-10 21:30 | ED.GENADULT ---
HPI - General Adult General Date Seen: 03/10/24 Chief complaint: Lower Extremity Swelling Stated complaint: R lower leg large blister-diabetic Time Seen by Provider: 03/10/24 21:29 History of Present Illness HPI narrative: 78-year-old gentleman with a past medical history including prostate cancer with known bone metastasis and lymph node metastasis and a 6 mm right upper lobe lung nodule (on enzalutamide, leuprolide), hypertension, hyperlipidemia, and diabetes presenting to the ER today for evaluation. He has had a blister on his right lateral lower leg with redness around it. It started about a week ago and was small but has been expanding. The blister headers is not painful. He has no known injury to his leg. It is filled with clear/yellow fluid. He has some redness of the skin of his antonio around the blister, but his daughter notes that he has chronic redness there. They do not think that the redness is any more red or more widespread this week than normal. No pain in his leg. No numbness in his foot. No fever chills. With the patient and his daughter made an appointment to follow-up with his primary care provider, at the [facility] clinic, tomorrow. However because the blisters been expanding they decided they should wait anymore. They came to the ER desiring that we would pop the blister and drain the fluid. The patient and his daughter note that he did have trouble with blisters affecting both of his legs about a year ago. They were thought to have been related to peripheral vascular disease. He treated them through the [facility] clinic. He was referred to a vascular specialist and it sounds like he had an arterial ultrasound that showed mild disease but did not require any stenting. All of his previous blisters healed well. He has a 90 trouble this was for a long time He was to follow-up in 1 year for checkup. His current blister started this week. Unclear why. No injury. No new swelling in his legs Related Data Home Medications Medication Instructions Recorded Confirmed aspirin 81 mg capsule 81 mg PO DAILY 05/11/22 12/22/23 losartan 100 mg tablet mg 05/11/22 12/22/23 simvastatin 20 mg tablet mg 05/11/22 12/22/23 triamterene 75 tab 05/11/22 12/22/23 mg-hydrochlorothiazide 50 mg tablet insulin glargine 100 unit/mL (3 60 unit subcut QPM 05/14/22 12/22/23 mL) subcutaneous pen (Lantus Solostar U-100 Insulin) metformin 1,000 mg tablet 1,000 mg PO BIDWMEAL 05/14/22 12/22/23 leuprolide (3 month) 22.5 mg (3 22.5 mg IM [id number] 10/22/22 12/22/23 month) intramuscular syringe kit (Lupron Depot) calcium carbonate 600 mg-vitamin 2 tab PO DAILY 02/17/23 12/22/23 D3 10 mcg (400 unit) chewable tablet cyanocobalamin (vitamin B-12) 1,000 mcg PO QDAY 02/17/23 12/22/23 1,000 mcg capsule empagliflozin 10 mg tablet 10 mg PO QDAY 02/17/23 12/22/23 (Jardiance) cilostazol 50 mg tablet 25 mg PO BID 09/21/23 12/22/23 gabapentin 300 mg capsule 300 mg PO TID 09/21/23 09/21/23 omeprazole 20 mg tablet,delayed 20 mg PO QDAY PRN 12/22/23 12/22/23 release Previous Rx's Medication Instructions Recorded diazepam 5 mg tablet 5 mg PO BID PRN anxiety #60 tabs 06/24/23 enzalutamide 40 mg capsule 160 mg (4 x 40 mg) PO DAILY 30 11/19/23 days #120 caps Allergies Allergy/AdvReac Type Severity Reaction Status Date / Time No Known Drug Allergies Allergy Verified 12/22/23 15:15 PFSH PFS Social History Smoking Status: Former smoker Do you use any of these nicotine containing products: None Second hand tobacco smoke exposure: No How often do you have a drink containing alcohol: monthly or less How many standard drinks containing alcohol do you have on a typical day: 1 or 2 AUDIT-C Alcohol total score: 1 Non-prescribed substance use: denies use service: No Exam Narrative: Exam Narrative: Constitutional: Appears well-developed and well-nourished. Alert. Conversant and cooperative and polite. Non toxic. HENT: Head: Atraumatic. Nose: Nose normal. Mouth/Throat: Oral mucosa is clear and moist. no trismus. Pharynx normal. Tonsils symmetric. No tonsillar enlargement, erythema, or exudate. Eyes: Conjunctivae normal. EOM normal. Pupils equal, round, and reactive to light. No scleral icterus. Neck: Normal range of motion. Neck supple. No tracheal deviation present. Cardiovascular: Normal rate, regular rhythm. No gallop. No friction rub. No murmur heard. Symmetric radial artery pulses Pulmonary/Chest: Effort normal. No stridor. No respiratory distress. No wheezes. No rales. No rhonchi . No tenderness. Abdominal: Soft. No distension. No mass. No tenderness. No rebound. No guarding. Musculoskeletal: RUE: Normal range of motion. No tenderness. No deformity LUE: Normal range of motion. No tenderness. No deformity RLE: Normal range of motion in his hip, knee, ankle, toes. 1+ edema. No tenderness. No deformity There is a fairly large tense blister on the lateral aspect of the patient's right lower extremity. It is about 3[address] from the knee to the ankle, closer to the ankle. It is roughly 6 x 7 cm in size. It contains translucent yellow fluid. The skin overlying the blister is tense. There is chronic appearing erythema affecting a fairly large area over the patient's anterior and anterolateral antonio. Patient has pictures of his leg from last year and the erythema appears similar tonight to hold pictures. No signs of any new or worsening edema, any new spreading redness. LLE: Normal range of motion. 1+ edema. No tenderness. No deformity Lymph: No ascending lymphangitis Neurological: Alert and oriented to person, place, and time. Normal strength. CN II-VII intact. No sensory deficit. GCS eye subscore is 4. GCS verbal subscore is 5. GCS motor subscore is 6. Normal coordination Skin: Thickening toenail as on both feet. Dry skin and peeling on both feet. No signs of any foot cellulitis. Other than the blister on his right anterolateral antonio,s kin is warm and dry. No rash noted. No pallor. Normal capillary refill. Psychiatric: Normal mood. Normal affect. Const: Vital Signs, click to edit/add: Vital Signs - 24 hr 03/10/24 21:28 Temperature 98.1 F Pulse Rate [Pulse Oximeter] 92 Respiratory Rate 18 Blood Pressure [Ri ght Upper Arm] 170/70 H Pulse Oximetry 96 Oxygen Delivery Me thod Room Air Course Vital Signs Vital signs: Initial Vital Signs Temperature 98.1 F 03/10/24 21:28 Temperature Source Temporal Artery Scan 03/10/24 21:28 Pulse Rate 92 03/10/24 21:28 Respiratory Rate 18 03/10/24 21:28 Blood Pressure 170/70 H 03/10/24 21:28 Blood Pressure Mean 103 03/10/24 21:28 Blood Pressure Position Sitting 03/10/24 21:28 Pulse Oximetry 96 03/10/24 21:28 Oxygen Delivery Method Room Air 03/10/24 21:28 Vital Signs Temperature 98.1 F 03/10/24 21:28 Pulse Rate 92 03/10/24 21:28 Respiratory Rate 18 03/10/24 21:28 Blood Pressure 170/70 H 03/10/24 21:28 Pulse Oximetry 96 03/10/24 21:28 Oxygen Delivery Method Room Air 03/10/24 21:28 Temperature 98.1 F 03/10/24 21:28 Pulse Rate 92 03/10/24 21:28 Respiratory Rate 18 03/10/24 21:28 Blood Pressure 170/70 H 03/10/24 21:28 Pulse Oximetry 96 03/10/24 21:28 Oxygen Delivery Method Room Air 03/10/24 21:28 Medical Decision Making MDM Narrative Medical decision making narrative: This is a very pleasant 78-year-old gentleman with a complex past history including metastatic prostate cancer (on hormonal therapy, not active chemo), diabetes, with only very mild peripheral neuropathy), mild peripheral artery disease, as well as a history of blisters forming on his lower extremities. They present to the ER today with a fairly large blister on his right lateral antonio. They desire that we drain the blister so that they can start applying dressings to get the area to heal. Fortunately there is no sign of any infection in the blister. No purulent fluid. I did sterilize the skin using Betadine and then created a small opening on the anterior aspect of the blister using an 18 gauge needle. We were able to express all the fluid out until the blister was flat. There is some erythema of the antonio around the blister but that actually is chronic. No sign of any new active cellulitis. After we drained the blister, we applied antibiotic ointment and a sterile dressing. Wrapped gently with Coban to avoid excess redness or any vascular constriction of the leg. They will follow-up with their doctor [facility] tomorrow for wound check. Precautions for return to the ER reviewed. Questions answered for the patient and his daughter and they are eager for discharge home. Discharge Plan Discharge Clinical Impression: Skin bulla Patient Disposition: Home, Self-Care Condition: Stable Instructions: Blister (ED) Additional Instructions: Please follow-up with your regular doctor, Dr. Leonardo at the [facility], tomorrow for recheck. Monitor the area carefully. Please change the dressing once per day. Watch for signs of infection. If you develop redness, pus draining from the blister, fever, spreading swelling, weakness or chills or body aches, please see your doctor or come back to the ER right away.. Prescriptions: No Action insulin glargine [Lantus Solostar U-100 Insulin] 100 unit/mL (3 mL) insulin pen 60 unit subcut QPM metformin 1,000 mg tablet 1,000 mg PO BIDWMEAL omeprazole 20 mg tablet,delayed release (DR/EC) 20 mg PO QDAY PRN Lupron Depot (3 month) 22.5 mg syringe kit 22.5 mg IM [id number] Jardiance 10 mg tablet 10 mg PO QDAY cyanocobalamin (vitamin B-12) 1,000 mcg capsule 1,000 mcg PO QDAY calcium carbonate-vitamin D3 600 mg-10 mcg (400 unit) tablet,chewable 2 tab PO DAILY Patient Comments: calcium 1200mg po plus 25mcg vit d3 gabapentin 300 mg capsule 300 mg PO TID cilostazol 50 mg tablet 25 mg PO BID aspirin 81 mg capsule 81 mg PO DAILY simvastatin 20 mg tablet triamterene-hydrochlorothiazid 75-50 mg tablet losartan 100 mg tablet diazepam 5 mg tablet 5 mg PO BID PRN (Reason: anxiety) Qty: 60 0RF enzalutamide 40 mg capsule 160 mg PO DAILY 30 Days Qty: 120 4RF Follow Up/Referrals: Art Leonardo MD [Primary Care Provider] - Stand Alone Forms: [employer] Info Instructions
--- OUTSIDE RECORDS SUMMARY | 2024-03-10 22:10 | XMS_ITS | Clinical Summary ---
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 0 11/10/2014 Active lancetsIndications: Type 2 diabetes mellitus without complication, with long-term current use of insulin (HC) Dispense meter, test strips, lancets covered by pt ins. E11.9 - Test 1 time/day 100 Each 3 10/01/2016 Active blood sugar diagnostic (BLOOD GLUCOSE TEST) stripIndications:Ty pe 2 diabetes mellitus with diabetic polyneuropathy, with long-term current use of insulin (HC) Dispense meter, test strips, lancets covered by pt ins.E11.42 test twice daily 100 Strip 5 10/01/2016 Active blood-glucose meterIndications:Ty pe 2 diabetes mellitus with diabetic polyneuropathy, with long-term current use of insulin (HC) Dispense meter, test strips, lancets covered by pt ins. E11.9 IDDM type II - Test 2 times/day. 1 Device 07/30/2017 Active miscellaneous medical supply (BLOOD PRESSURE CUFF) miscIndications:Hyp ertension As directed. 1 Each 01/18/2021 Active Xtandi 40 mg capsule 03/13/2022 Active clotrimazole (LOTRIMIN) 1 % creamIndications:Ti tasha cruris Apply topically to affected area(s) two times daily. 113 g 2 07/15/2022 Active durable medical equipment (DME)Indications:Lo wer extremity edema,Type 2 diabetes mellitus with other circulatory complications (HC) Compression socks downing device 1 Each 07/07/2023 Active doxazosin (CARDURA) 2 mg tablet Active emollient (Vanicream) creamIndications:Ce llulitis of skin,Multiple wounds of skin Apply topically to affected area(s) 2 times daily if needed for Dry Skin, Irritation or Itching. 113 g 3 07/17/2023 Active diazePAM (VALIUM) 10 mg tablet Active empagliflozin (Jardiance) 10 mg tabletIndications:T ype 2 diabetes mellitus with stage 3 chronic kidney disease, with long-term current use of insulin, unspecified whether stage 3a or 3b CKD (HC),Stage 3b chronic kidney disease (HC) Take 1 Tablet (10 mg) by mouth once daily. 90 Tablet 3 07/23/2023 Active Graduated Compression StockingsIndication s:PVD (peripheral vascular disease) (HC) For personal use. Length: calf Strength: 16-20 mmHg Circumference in cm: For calf: Calf 16.5-17, Ankle to calf length 17-18. 1 Packet 08/14/2023 Active losartan (COZAAR) 100 mg tabletIndications:H ypertension Take 1 Tablet (100 mg) by mouth once daily. 90 Tablet 3 10/13/2023 Active cilostazoL (PLETAL) 50 mg tabletIndications:P AD (peripheral artery disease) (HC) Take 0.5 Tablets (25 mg) by mouth two times daily before meals. 90 Tablet 3 10/30/2023 Active gabapentin (NEURONTIN) 300 mg capsuleIndications: Peripheral sensory neuropathy Take 1 Capsule (300 mg) by mouth three times daily. 270 Capsule 3 10/30/2023 Active Insulin Carleton, Disposable, (Unifine Pentips) 32 gauge x 1/4Indications:Typ e 2 diabetes mellitus with stage 3 chronic kidney disease, with long-term current use of insulin, unspecified whether stage 3a or 3b CKD (HC) For administering insulin at home. 100 Each 3 10/30/2023 Active metFORMIN (GLUCOPHAGE) 1,000 mg tabletIndications:T ype 2 diabetes mellitus with stage 3 chronic kidney disease, with long-term current use of insulin, unspecified whether stage 3a or 3b CKD (HC) Take 1 Tablet (1,000 mg) by mouth two times daily with meals. 180 Tablet 3 10/30/2023 Active omeprazole (PRILOSEC) 20 mg Delayed-Release capsuleIndications: Chronic GERD Take 1 Capsule (20 mg) by mouth once daily before a meal. 90 Capsule 3 10/30/2023 Active simvastatin (ZOCOR) 20 mg tabletIndications:M ixed hyperlipidemia Take 1 Tablet (20 mg) by mouth at bedtime. 90 Tablet 3 10/30/2023 Active triamterene-hydroch lorothiazide, 75-50 mg, (MAXZIDE) 75-50 mg tabletIndications:H ypertension Take 1 Tablet by mouth every morning. 90 Tablet 3 10/30/2023 Active Basaglar KwikPen U-100 Insulin 100 unit/mL (3 mL) penIndications:Type 2 diabetes mellitus with stage 3 chronic kidney disease, with long-term current use of insulin, unspecified whether stage 3a or 3b CKD (HC) Inject 60 units subcutaneous before bedtime. Product desired: BASAGLAR KWIKPEN 55 mL 3 12/15/2023 Active cyanocobalamin (VITAMIN B12) 1,000 mcg tabletIndications:B 12 deficiency TAKE ONE TABLET (1,000 MCG) BY MOUTH ONCE DAILY 90 Tablet 2 01/25/2024 Active Active Problems Problem Noted Date Diagnosed Date Prostate cancer metastatic to multiple sites Anxiety 07/09/2022 Cataract, nuclear sclerotic senile, left 018 Chronic kidney disease, stage III (moderate) Morbid obesity with BMI of 40.0-44.9, adult /0 11/2015 Type 2 diabetes mellitus wit h stage 3 chronic kidney disease, with long-term current use of insulin 02/26/2013 Hypertension 02/26/2013 Encounters Date Type Department Care Team Description 02/03/2024 8:20 AM CDT Office Visit [facility] [address] [place] [id number] Addie Conway, TRINO Eye Exam (Diabetic) 02/03/2024 Travel 01/29/2024 4:05 PM CDT Office Visit [facility] [address] [facility] [place] [address] Art Leonardo MD Diabetes; Immunization/Injectio n 01/29/2024 Travel 01/25/2024 Refill [facility] [address] [place] [address] Yenni Peña DO Refill Request (Cyanocobalamin) from Last 3 Months Immunizations Name Administration Dates Next Due COVID-19 Vaccine Spikevax (M oderna 50mcg/0.5mL) 12YO+ [id number] Formula PF 01/29/2024 COVID-19 vaccine (Pfizer-Bio NTech 30mcg/0.3mL) 12YO+ BIVALENT PF, MDV 10/10/2022 COVID-19 vaccine (Pfizer-Bio NTech 30mcg/0.3mL) 12YO+ TIRSO-SUCROSE PF, MDV 04/14/2022 COVID-19 vaccine (Pfizer-Bio NTech 30mcg/0.3mL) PF, MDV 10/23/2021,01/17/2021,12/27/2020 Influenza, High-dose Inactivated 10/01/2016,08/10,11/10/2014 Influenza, High-dose Quadriv alent Inactivated 09/26/2020 Influenza, Inactivated AIIV4 (Age 65+ Years) Preserv Free 07/17/2023,10/10/2022,07/23/2021 Influenza, Inactivated IIV3 (Age 65+ Years) Preserv Free 11/04/2019,07/06/2018,07/30/2017 Pneumococcal Poly,23-Valent (Pneumovax) 02/29/20 14 Pneumococcal conj 13-Valent (Prevnar 13) 015 Tdap 08/05/2023 Zoster (Shingrix-RZV, recombinant) 12/17/2022, Zoster (Zostavax-ZVL, live) 02/28/2014 Family History Medical History Relation Name Comments Diabetes Brother Diabetes Father Relation Name Status Comments Brother Father Social History Tobacco Use Types Packs/Day Years Used Date Smoking Tobacco: Former Cigarettes 0.1 20 Smokeless Tobacco: Never Tobacco Cessation:Counseling Given: Yes Alcohol Use Standard Drinks/Week Comments Yes 4 (1 standard drink = 0.6 oz pur e alcohol) 2 beer /week PHQ-2 Answer Date Recorded PHQ-2 TOTAL SCORE 0 10/30/2023 Social Connections Answer Date Recorded Frequency of Communication with Friends and Fami ly 0 08/06/2023 Financial Resource Strain Answer Date R ecorded Difficulty of Paying Living Expenses 3 08/06/2023 Difficulty of Paying Living Expenses Not on file 08/06/2023 Food Insecurity Answer Date Recorded Worried About Running Out of Food in the Last Ye ar 1 08/06/2023 Transportation Needs Answer Date Record ed Lack of Transportation (Medical) 1 08/06/2023 Housing Stability Answer Date Recorded Unable to Pay for Housing in the Last Year 1 08/06/2023 Sex and Gender Information Value Date Recorded Sex Assigned at Not on file Gender Identity Not on file Sexual Orientation Not on file Obstetrics History Last Filed Vital Signs Vital Sign Reading Time Taken Comments Blood Pressure 128/72 01/29/2024 4:30 PM CDT Pulse 71 01/29/2024 4:13 PM CDT Temperature 36.7 ??C (98 ??F) 08/06/2023 1:48 PM CDT Respiratory Rate 21 03/28/2022 2:25 PM CDT Oxygen Saturation 99% 01/29/2024 4:13 PM CDT Inhaled Oxygen Concentration - - Weight 108.7 kg (239 lb 11.2 oz) 01/29/2024 4:13 PM CDT Height 165.5 cm (5' 5.16) 10/10/2022 2:18 PM CS T Body Mass Index 39.7 10/10/2022 2:18 PM ANIMAL RESCUER Plan of Treatment Upcoming Encounters Date Type Department Care Team (Late st Contact Info) Description 03/11/2024 2:00 PM CDT Office Visit [facility] [address] [place] [address] Art Leonardo MD [address] [place] [address] 04/29/2024 2:00 PM CDT Office Visit [facility] [address] [facility] [address] Art Leonardo MD [address] [place] [address] Health Maintenance Due Date Last Done Comments BMI (ht and wt on same day) for age 18+ 10/10/2023 10/10/2022, 07/08/2022, 02/03/2022, Additional history exists Medicare Wellness for age 65+ 10/11/2023 10/10/2022, 01/18/2021 COVID-19 vaccine series ( season) 2024 01/29/2024, 10/10/2022, 04/14/2022, Additional history exists Influenza for age 65+ 07/10/2024 07/17/2023 , 10/10/2022, 07/23/2021, Additional history exists Depression screening for age 12+ 10/30/2024 10/30/2023, 10/10/2022, 07/10/2022, Additional history exists Tetanus booster 08/05/2033 08/05/2023 Hepatitis C screening for ag e 18-79 Completed 02/03/2014 Pneumococcal series for age 65+ Completed 08/30/2015, 02/28/2014, 02/28/2014 Zoster (shingles) series for age 50+ Completed 12/17/2022, 12/14/2021, 02/28/2014 Fecal testing non-DNA (FIT,FOBT,iFOBT) for age 45-75 Discontinued 02/27/2023, 02/20/2017, 06/27/2015 Tdap Completed 08/05/2023 Medical Devices Implanted Type Area Protection Manager Device Identifier Shelf Expiration Date Model / Serial / Lot [id number] - [id number] Implanted:Qty: 1 on 08/05/2018 by Tomi Mann Jr., MD at [facility] Left: Eye [employer] 01/08/2022 [id number] / [id number] / Description:TECNIS IOL 16.5 Procedures Procedure Name Priority Date/Time Associated Diagnosis Comments HEMOGLOBIN A1C Routine 01/29/2024 4:06 PM CDT Type 2 diabetes mellitus with stage 3 chronic kidney disease, with long-term current use of insulin, unspecified whether stage 3a or 3b CKD (HC) OCCULT BLOOD IFOBT STOOL Routine 02/27/2023 2:05 PM CDT Anemia of unknown etiology ANTI HCV Routine 02/03/2014 11:24 AM CDT DM (diabetes mellitus) Nephropathy from Last 3 Months or Most Recently Relevant to Health Maintenance Results * (ABNORMAL) HEMOGLOBIN A1C MONITORING (POCT) (01/29/2024 4:06 PM CDT) HEMOGLOBIN A1C MONITORING (POCT) 7.5(H) <=6.4 % 01/29/2024 4:15 PM CDT [facility] Blood BLOOD SPECIMEN / Unknown Venipuncture / Unknown 01/29/2024 4:06 PM CDT 01/29/2024 4:06 PM CDT Narrative [facility] - 01/29/2024 4:15 PM CDT ? (<=6.9%) ? Indicates good control ? (7.0% to 7.9%) ? Indicates fair control ? (>=8.0%) ? Indicates poor control ?? NOTE: ??These thresholds are guidelines and ?individual targets may vary. Falsely low levels may be seen with: Recent Transfusion, Recent Significant Blood Loss, Hemolytic Diseases, or Falsely elevated levels may be seen with: Untreated Anemias, Splenectomy ? Art Leonardo MD CHEMISTRY [facility] [address] [place] [address], * OCCULT BLOOD IFOBT STOOL (02/27/2023 2:05 PM CDT) STOOL BLOOD ,IFOBT Negative Negative 03/02/2023 2:52 PM CDT [facility] Stool STOOL SPECIMEN / Unknown Non-Blood / Unknown 02/27/2023 2:05 PM CDT 03/02/2023 2:06 PM CDT Yenni Peña DO LABORATORY [facility] [address] [place] [address], * ANTI HCV (02/03/2014 11:24 AM CDT) ANTI HCV Non-reacti ve [facility] Blood specimen (specimen) BLOOD SPECIMEN / Unknown 02/03/2014 11:24 AM CDT 02/03/2014 11:19 AM CDT Carina Trinh SEND OUTS [facility] INTERNAL ZIP [address] [place] [id number] from Last 3 Months or Most Recently Relevant to Health Maintenance Advance Directives * Full Code (Latest Code Status on File) Date Activated Date Inactivated Comments 03/28/2022 11:27 AM 03/28/2022 4:55 PM Question Answer Comments Code Status Discussion: Other * Full Code Date Activated Date Inactivated Comments 08/05/2018 6:26 AM 08/05/2018 11:14 AM Question Answer Comments Code Status Discussion: Not Discussed Care Teams Dairy Farmworker Relationship Specialty Start Date End Date Art Leonardo MD [address] [facility] [address] PCP - General Family Practice 01/31/22
--- OUTSIDE RECORDS SUMMARY | 2024-03-10 22:11 | XMS_ITS | Data Portability ---
Author Name Unknown Address [address] [place] [address] Phone [phone] Organization [facility], [facility] Address [address] [place] [address] Care Team Providers Care Oil Well Fishing Tool Technician Name Role Phone SAADIA DAVIS Primary Care Provider Assessment No assessment recorded. Plan of Treatment Reminders Order Date Submit Date Provider Last Modified By Organization Details Last Modified Time Details Appointments None recorded. Lab None recorded. Referral None recorded. Procedures None recorded. Surgeries None recorded. Imaging None recorded. Medication Orders ceftriaxone 1 gram solution for injection [address] [facility], [address] [place] [address], [address], 16:42:37 Patient TargetsNo targets recorded. Patient InstructionsNo instructions recorded. Reason for Referral Questionable lesion at the s acroliliac joint, PSA >100 ng/mL. Referring Physician: Javon Nichols, Urology, Encounter Date: 01/20/2022 Interventional Radiologist R eferral for Prostate specific antigen above reference range Concern for bony metastatis from prostate cancer at the left of the sacroliliac joint. Consult for bone biopsy. Referring Physician: Javon Nichols, Urology, Encounter Date: 01/23/2022 Results Created Date Observation Date Name Description Value Unit Range Abnormal Flag LastModifiedBy Organization Detail LastModifiedTime 02/08/20 22 02/06/2022 imagi ng/di agnos tic resul t No observ ation record ed. Not Available 02/20/2022 17:57:30 02/19/20 22 01/14/2022 NM, bone scan, whole body No observ ation record ed. Not Available 02/20/2022 17:57:31 02/19/20 22 01/14/2022 CT, abdom en + pelvi s, w/o contr ast No observ ation record ed. Not Available 02/20/2022 17:57:30 02/22/20 22 02/20/2022 US, prost ate No observ ation record ed. [facility] Not Available 02/21/2022 15:15:22 Result Notes None recorded. Procedures Surgical History Date Name Laterality Status Provider Name and Address Organization Details Recorded Time Prostate Biopsy Procedure completed Javon Nichols MD [address] [place] [address],[address], [address], [facility] 02/20/2022 17:58:47 8 extraction of cataract completed Nilsalucia villegas [facility] 02/18/2022 10:30:34 extraction of cataract completed Nilsa villegas [facility] 02/18/2022 10:31:17 Imaging Results Imaging Date Name Status LastModified by Organiz ation Details LastModified Time 02/06/2022 imaging/diagn ostic result completed [facility] Information not available 02/20/2022 17:57:30 01/14/2022 NM, bone scan, whole body completed [facility] Information not available 02/20/2022 17:57:31 01/14/2022 CT, abdomen + pelvis, w/o contrast completed [facility] Information not available 02/20/2022 17:57:30 02/20/2022 US, prostate completed [facility] Information not available 02/21/2022 15:15:22 Procedure Notes None recorded. Medical Equipment None Reported. Allergies No known drug allergies Medications Name Sig Start Date Stop Date Status Note LastModified by Organization Details LastModified Time losartan 50 mg tablet active Not Available Not Available No t Available glipizide 10 mg tablet active Not Available Not Available No t Available ceftriaxone 1 gram solution for injection Take 1 g by injection route. 2021 active Not Available Not Available Not Avai lable simvastatin 20 mg tablet active Not Available Not Available Not Available metformin 1,000 mg tablet active Not Available Not Available Not Available triamterene 75 mg-hydrochlor othiazide 50 mg tablet active Not Available Not Available No t Available diazepam 10 mg tablet active Not Available Not Available No t Available losartan 100 mg tablet active Not Available Not Available No t Available doxazosin 2 mg tablet active Not Available Not Available No t Available Lantus Solostar U-100 Insulin 100 unit/mL (3 mL) subcutaneous pen active Not Available Not Available Not Available Unifine Pentips 32 gauge x 1/4 needle active Not Available Not Available Not Available Vitals Date Recorded Body height Body mass index (BMI) Body weight Provider Name and Address Organization Details Last Updated DateTime 02/20/2022 165.1 cm 39.9 kg/m2 028622.17 g Nilsa villegas [facility] 02/20/2022 16:30:25 Social History Question Answer Notes LastModified by Organizat ion Details LastModified Time Tobacco Smoking Status Former Smoker NAIF Vasquez [facility] 02/18/2022 10:33:18 What Is Your Level Of Alcohol Consumption? Occasional Information not available 02/18/2022 What Is Your Level Of Caffeine Consumption? Occasional Information not available 02/20/2022 When Did You Quit Smoking? 16+yearssincel ngoccieldon Information not available 02/20/2022 Recreational Drug Use No Information not available 02/20/2022 Could You Be ? No Information not available 02/20/2022 What Was The Date Of Your Most Recent Tobacco Screening? 02/20/2022 Information not available 02/18/2022 What Is Your Relationship Status? Information not available 02/20/2022 Do You Use Any Illicit Or Recreational Drugs? No Information not available 02/18/2022 Has Tobacco Cessation Counseling Been Provided? No Information not available 02/18/2022 Do You Or Have You Ever Used Any Other Forms Of Tobacco Or Nicotine? No Information not available 02/18/2022 Sex: Male Functional Status None recorded. Mental Status None recorded. Family History Relationship Description Onset Age of this Age Resolved Age Notes Father Family history of di abetes mellitus Brother Family history of di abetes mellitus Medical History Condition Response Diabetes Y Bleeding Disorder N High Blood Pressure Y Kidney Stones N High Cholesterol Y GERD/Acid Reflux N Heart Disease N Cancer N Depression N Lung Disease N Past Encounters Encounter ID Performer Location Encounter Start Date Encounter Closed Date Diagnosis/Indication Diagnosis SNOMED-CT Code [id number] Javon Nichols MD [facility] [address] [place] [address] 02/20/2022 16:22:21 02/21/2022 13:36:03 Prostate specific antigen above reference range [id number] Health Concerns Section Related Observation LastModified by Organization Detai ls LastModified Time None Recorded Concern Status LastModified by Organization Details LastModified Time None Recorded Advance Directives Directive None Recorded Payers Encounter Date Sequence Insurance Name Policy Number Policy Mathews Covered Member ID Mathews Member ID Guarantor Name 02/20/2022 1 MEDICARE [place]: [employer] [facility] Gildardo Huerta [id number] Gildardo Huerta 02/20/2022 2 [place] (MED[place]AC[place] - HMO) MNDBBS Gildardo Huerta [id number] Gildardo Huerta Notes Date Note Type Note Provider Name and Address Organization Details Recorded Time 02/20/2022 text/html HPI Notes: 76 yo M with elevated PSA >100 ng/mL. Underwent FNA biopsy of sacral lesion but path unfortunately indeterminate. Here for prostate biopsy. All questions answered. Javon Nichols MD [address], [place], [address], [facility] 02/20/2022 17:59:30
== END 2024-03-10 22:15 | disposition home or self-care (01) ==
LOC: ED 22:08
PROVIDERS: Emergency Provider Emergency Medicine; PCP Surgery
DX: R23.8 Other skin changes (principal)
CPT/HCPCS: 10160; 99282; 99283

== ENCOUNTER 2024-03-17 08:17 | Outpatient (CLI) | payer MEDICARE, BC, SELFPAY ==
--- OUTSIDE RECORDS SUMMARY | 2024-03-17 08:20 | XMS_ITS | Data Portability ---
Author Name Unknown Address [address] [place] [address] Phone [phone] Organization [facility], [facility] Address [address] [place] [address] Care Team Providers Care Wholesale And Retail Merchant Name Role Phone SAADIA DAVIS Primary Care Provider Assessment No assessment recorded. Plan of Treatment Reminders Order Date Submit Date Provider Last Modified By Organization Details Last Modified Time Details Appointments None recorded. Lab None recorded. Referral None recorded. Procedures None recorded. Surgeries None recorded. Imaging None recorded. Medication Orders ceftriaxone 1 gram solution for injection [address] [place] [address] [facility], [address] [place] [address], [address], 16:42:37 Patient TargetsNo targets recorded. Patient InstructionsNo [...] Prostate Biopsy Procedure completed Javon Nichols MD [address] [place] [address],[address], [place], [address], [facility] 02/20/2022 17:58:47 8 extraction of cataract completed Nilsalucia villegas [facility] 02/18/2022 10:30:34 extraction of cataract completed Nilsa villegas [facility] 02/18/2022 10:31:17 Imaging Results Imaging Date Name Status LastModified by Organiz ation Details LastModified Time 02/06/2022 imaging/diagn ostic result completed [email or web address] Information not available 02/20/2022 17:57:30 01/14/2022 NM, bone scan, whole body completed [facility] Information not available 02/20/2022 17:57:31 01/14/2022 CT, abdomen + pelvis, w/o contrast completed [facility] Information not available 02/20/2022 17:57:30 02/20/2022 US, [...] Updated DateTime 02/20/2022 165.1 cm 39.9 kg/m2 410733.17 g Nilsa villegas [facility] 02/20/2022 16:30:25 Social History Question Answer Notes LastModified by Organizat ion Details LastModified Time Tobacco Smoking Status Former Smoker NAIF Vasquez [facility] 02/18/2022 10:33:18 What Is Your Level [...] di abetes mellitus Medical History Condition Response High Blood Pressure Y Kidney Stones N Lung Disease N Depression N GERD/Acid Reflux N Diabetes Y Bleeding Disorder N Cancer N High Cholesterol Y Heart Disease N Past Encounters Encounter ID Performer Location Encounter Start Date Encounter Closed Date Diagnosis/Indication Diagnosis SNOMED-CT Code [id number] Javon Nichols MD [facility] [address] [place] [address] 02/20/2022 16:22:21 02/21/2022 13:36:03 Prostate specific antigen above reference range [id number] Health Concerns Section Related Observation LastModified by Organization Detai ls LastModified Time None Recorded Concern Status LastModified by Organization Details LastModified Time None Recorded Advance Directives Directive None Recorded Payers Encounter Date Sequence Insurance Name Policy Number Policy Mathews Covered Member ID Mathews Member ID Guarantor Name 02/20/2022 1 [place] [employer] [facility] Gildardo Huerta [id number] Gildardo Huerta 02/20/2022 2 [place] - [place]) MNDBBS Gildardo Huerta [id number] Gildardo Huerta Notes Date Note Type Note Provider Name and Address Organization Details Recorded Time 02/20/2022 text/html HPI Notes: 76 yo M with elevated PSA >100 ng/mL. Underwent FNA biopsy of sacral lesion but path unfortunately indeterminate. Here for prostate biopsy. All questions answered. Javon Nichols MD [address], [place], [address], [facility] 02/20/2022 17:59:30
--- OUTSIDE RECORDS SUMMARY | 2024-03-17 08:20 | XMS_ITS | Clinical Summary ---
Author Name Unknown Organization [facility] Address [place], [place] [address] Care Team Providers Care Computer Sciences Professor Name Role Phone Art Leonardo MD Primary Care Provider [phone] Allergies No known active allergies Medications Medication Sig Dispensed Refills Start Date End Date Status aspirin (ECOTRIN) 81 mg enteric coated tablet Take 1 tablet by mouth once daily with a meal. 0 5 Active lancetsIndications: Type 2 diabetes mellitus without complication, with long-term current use of insulin (HC) Dispense meter, test strips, lancets covered by pt ins. E11.9 - Test 1 time/day 100 Each 3 6 Active blood sugar diagnostic (BLOOD GLUCOSE TEST) stripIndications:Ty pe 2 diabetes mellitus with diabetic polyneuropathy, with long-term current use of insulin (HC) Dispense meter, test strips, lancets covered by pt ins.E11.42 test twice daily 100 Strip 5 6 Active blood-glucose meterIndications:Ty pe 2 diabetes mellitus with diabetic polyneuropathy, with long-term current use of insulin (HC) Dispense meter, test strips, lancets covered by pt ins. E11.9 IDDM type II - Test 2 times/day. 1 Device 7 Active miscellaneous medical supply (BLOOD PRESSURE CUFF) miscIndications:Hyp ertension As directed. 1 Each 1 Active Xtandi 40 mg capsule 2 Active clotrimazole (LOTRIMIN) 1 % creamIndications:Ti tasha cruris Apply topically to affected area(s) two times daily. 113 g 2 2 Active durable medical equipment (DME)Indications:Lo wer extremity edema,Type 2 diabetes mellitus with other circulatory complications (HC) Compression socks downing device 1 Each 3 Active doxazosin (CARDURA) 2 mg tablet Active emollient (Vanicream) creamIndications:Ce llulitis of skin,Multiple wounds of skin Apply topically to affected area(s) 2 times daily if needed for Dry Skin, Irritation or Itching. 113 g 3 3 Active diazePAM (VALIUM) 10 mg tablet Active empagliflozin (Jardiance) 10 mg tabletIndications:T ype 2 diabetes mellitus with stage 3 chronic kidney disease, with long-term current use of insulin, unspecified whether stage 3a or 3b CKD (HC),Stage 3b chronic kidney disease (HC) Take 1 Tablet (10 mg) by mouth once daily. 90 Tablet 3 3 Active Graduated Compression StockingsIndication s:PVD (peripheral vascular disease) (HC) For personal use. Length: calf Strength: 16-20 mmHg Circumference in cm: For calf: Calf 16.5-17, Ankle to calf length 17-18. 1 Packet 3 Active losartan (COZAAR) 100 mg tabletIndications:H ypertension Take 1 Tablet (100 mg) by mouth once daily. 90 Tablet 3 3 Active cilostazoL (PLETAL) 50 mg tabletIndications:P AD (peripheral artery disease) (HC) Take 0.5 Tablets (25 mg) by mouth two times daily before meals. 90 Tablet 3 3 Active gabapentin (NEURONTIN) 300 mg capsuleIndications: Peripheral sensory neuropathy Take 1 Capsule (300 mg) by mouth three times daily. 270 Capsule 3 3 Active Insulin Naturita, Disposable, (Unifine Pentips) 32 gauge x 1/4Indications:Typ e 2 diabetes mellitus with stage 3 chronic kidney disease, with long-term current use of insulin, unspecified whether stage 3a or 3b CKD (HC) For administering insulin at home. 100 Each 3 3 Active metFORMIN (GLUCOPHAGE) 1,000 mg tabletIndications:T ype 2 diabetes mellitus with stage 3 chronic kidney disease, with long-term current use of insulin, unspecified whether stage 3a or 3b CKD (HC) Take 1 Tablet (1,000 mg) by mouth two times daily with meals. 180 Tablet 3 3 Active simvastatin (ZOCOR) 20 mg tabletIndications:M ixed hyperlipidemia Take 1 Tablet (20 mg) by mouth at bedtime. 90 Tablet 3 3 Active triamterene-hydroch lorothiazide, 75-50 mg, (MAXZIDE) 75-50 mg tabletIndications:H ypertension Take 1 Tablet by mouth every morning. 90 Tablet 3 3 Active Basaglar KwikPen U-100 Insulin 100 unit/mL (3 mL) penIndications:Type 2 diabetes mellitus with stage 3 chronic kidney disease, with long-term current use of insulin, unspecified whether stage 3a or 3b CKD (HC) Inject 60 units subcutaneous before bedtime. Product desired: BASAGLAR KWIKPEN 55 mL 3 4 Active cyanocobalamin (VITAMIN B12) 1,000 mcg tabletIndications:B 12 deficiency TAKE ONE TABLET (1,000 MCG) BY MOUTH ONCE DAILY 90 Tablet 2 4 Active amoxicillin-clavula robyn 875-125 mg tablet (AUGMENTIN)Indicati ons:Cellulitis of right lower extremity,Blister of right lower leg, subsequent encounter Take 1 Tablet by mouth two times daily with meals for 10 days. 20 Tablet 4 03/21/20 24 Active omeprazole (PRILOSEC) 20 mg Delayed-Release capsuleIndications: Chronic GERD Take 1 Capsule (20 mg) by mouth once daily before a meal. 90 Capsule 3 4 Active omeprazole (PRILOSEC) 20 mg Delayed-Release capsuleIndications: Chronic GERD Take 1 Capsule (20 mg) by mouth once daily before a meal. 90 Capsule 3 3 03/11/20 24 Discontinu ed(Reorder (E-cancel not sent)) Active Problems Problem Noted Date Diagnosed Date PAD (peripheral artery disease) 03/11/2024 Prostate cancer metastatic to multiple sites Anxiety 07/09/2022 Cataract, nuclear sclerotic senile, left 018 Chronic kidney disease, stage III (moderate) Morbid obesity with BMI of 40.0-44.9, adult 0 11/2015 Type 2 diabetes mellitus wit h stage 3 chronic kidney disease, with long-term current use of insulin 02/26/2013 Hypertension 02/26/2013 Encounters Date Type Department Care Team Description 03/11/2024 2:00 PM CDT Office Visit [facility] [address] [place] [address] Art Leonardo MD ER Follow up 03/11/2024 Travel 02/03/2024 8:20 AM CDT Office Visit [facility] [address] [place] [address] Addie Conway, TRINO Eye Exam (Diabetic) 02/03/2024 Travel 01/29/2024 4:05 PM CDT Office Visit [facility] [address] [place] [address] Art Leonardo MD Diabetes; Immunization/Injectio n 01/29/2024 Travel 01/25/2024 Refill [facility] [address] [place] [address] Yenni Peña DO Refill Request (Cyanocobalamin) from Last 3 Months Immunizations Name Administration Dates Next Due COVID-19 Vaccine Spikevax (M oderna 50mcg/0.5mL) 12YO+ [id number] Formula PF 01/29/2024 COVID-19 vaccine (Pfizer-Bio NTech 30mcg/0.3mL) 12YO+ BIVALENT PF, MDV 10/10/2022 COVID-19 vaccine (Pfizer-Bio NTech 30mcg/0.3mL) 12YO+ TIRSO-SUCROSE PF, MDV 04/14/2022 COVID-19 vaccine (Space Apart-Bio NTech 30mcg/0.3mL) PF, MDV 10/23/2021,01/17/2021,12/27/2020 Influenza, High-dose [...] Given: Yes Alcohol Use Standard Drinks/Week Comments Not Currently 4 (1 standard drink = 0.6 oz [...] Sign Reading Time Taken Comments Blood Pressure 138/69 03/11/2024 2:09 PM CDT Pulse 75 03/11/2024 2:09 PM CDT Temperature 36.7 ??C (98 ??F) 08/06/2023 1:48 PM CDT Respiratory Rate 21 03/28/2022 2:25 PM CDT Oxygen Saturation 99% 03/11/2024 2:09 PM CDT Inhaled Oxygen Concentration - - Weight 107.8 kg (237 lb 9.6 oz) 03/11/2024 2:09 PM CDT Height 165.5 cm (5' 5.16) 10/10/2022 2:18 PM CS T Body Mass Index 39.35 10/10/2022 2:18 PM RUFFLER Plan of Treatment Upcoming Encounters Date Type Department Care Team (Late st Contact Info) Description 04/29/2024 2:00 PM CDT Office Visit [facility] [address] [place] [address] Art Leonardo MD [address] [place] [address] Health Maintenance Due Date Last Done Comments BMI (ht and wt on same day) for age 18+ 10/10/2023 10/10/2022, 07/08/2022, 02/03/2022, Additional history exists Medicare Wellness for age 65+ 10/11/2023 10/10/2022, 01/18/2021 COVID-19 vaccine series (2022- season) 2024 01/29/2024, 10/10/2022, 04/14/2022, Additional history [...] Completed 08/05/2023 Medical Devices Implanted Type Area Cash Applications Analyst Device Identifier Shelf Expiration Date Model / Serial / Lot [id number] - [id number] Implanted:Qty: 1 on 08/05/2018 by Tomi Mann Jr., MD at [facility] Left: Eye [employer] 01/08/2022 [id number] / [id number] / Description:TECNIS IOL 16.5 Procedures Procedure Name [...] A1C MONITORING (POCT) (01/29/2024 4:06 PM CDT) [facility] Signature HEMOGLOBIN A1C MONITORING (POCT) 7.5(H) <=6.4 % 01/29/2024 4:15 PM CDT [facility] Blood BLOOD SPECIMEN / Unknown Venipuncture / Unknown 01/29/2024 4:06 PM CDT 01/29/2024 4:06 PM CDT Narrative [facility] - 01/29/2024 4:15 PM CDT ? (<=6.9%) [...] Anemias, Splenectomy ? Art Leonardo MD CHEMISTRY [facility] [address] [place] [address], [place] [phone] * OCCULT BLOOD IFOBT STOOL (02/27/2023 2:05 PM CDT) STOOL BLOOD ,IFOBT Negative Negative 03/02/2023 2:52 PM CDT [facility] Stool STOOL SPECIMEN / Unknown Non-Blood / Unknown 02/27/2023 2:05 PM CDT 03/02/2023 2:06 PM CDT Yenni Peña DO LABORATORY [facility] [address] [place] [address], [place] [phone] * ANTI HCV (02/03/2014 11:24 AM CDT) ANTI HCV Non-reacti ve [facility] Blood specimen (specimen) BLOOD SPECIMEN / Unknown 02/03/2014 11:24 AM CDT 02/03/2014 11:19 AM CDT Carina Trinh SEND OUTS [facility] [place]NAL ZIP [address] [place] [address] from Last 3 Months or Most Recently Relevant to Health Maintenance Advance Directives * Full Code (Latest Code Status on File) Date Activated Date Inactivated Comments 03/28/2022 11:27 AM 03/28/2022 4:55 PM Question Answer Comments Code Status Discussion: Other * Full Code Date Activated Date Inactivated Comments 08/05/2018 6:26 AM 08/05/2018 11:14 AM Question Answer Comments Code Status Discussion: Not Discussed Care Teams Computer Sciences Professor Relationship Specialty Start Date End Date Art Leonardo [place] [address] PCP - General Family Practice 01/31/22
== END 2024-03-17 08:18 | disposition home or self-care (01) ==
LOC: WOUND 08:19
PROVIDERS: PCP Surgery; Visit Provider Nurse Practitioner Family
DX: I87.311 Chronic venous hypertension (idiopathic) with ulcer of right lower extremity (principal); E11.622 Type 2 diabetes mellitus with other skin ulcer; I89.0 Lymphedema, not elsewhere classified; L97.812 Non-pressure chronic ulcer of other part of right lower leg with fat layer exposed; Z79.4 Long term (current) use of insulin; Z79.84 Long term (current) use of oral hypoglycemic drugs
CPT/HCPCS: 97602

== ENCOUNTER 2024-03-31 10:57 | Outpatient (CLI) | payer MEDICARE, BC, SELFPAY ==
--- OUTSIDE RECORDS SUMMARY | 2024-03-31 11:02 | XMS_ITS | Data Portability ---
Author Organization [facility], [facility] Address [address] [place] [address] Care Team Providers Care Kiln Repairer Name Role Phone ALISASELINASAADIA Primary Care Provider Assessment No assessment recorded. Plan of Treatment Reminders Order Date Submit Date Provider Last Modified By Organization Details Last Modified Time Details Appointments None recorded. Lab None recorded. Referral None recorded. Procedures None recorded. Surgeries None recorded. Imaging None recorded. Medication Orders ceftriaxone 1 gram solution for injection [address] [facility], [address] [place] [address], [id number], 16:42:37 Patient TargetsNo targets recorded. Patient InstructionsNo instructions recorded. Reason for Referral Questionable lesion at the s acroliliac joint, PSA >100 ng/mL. Referring Physician: Javon Nichols, Urology, Encounter Date: 01/20/2022 Interventional Radiologist R chierral for Prostate specific antigen above reference range [...] Prostate Biopsy Procedure completed Javon Nichols MD [address] [place] [address],[address], [place], [address], [facility] 02/20/2022 17:58:47 8 extraction of cataract completed Nilsa villegas [facility] 02/18/2022 10:30:34 extraction of cataract completed Nilsa villegas [facility] 02/18/2022 10:31:17 Imaging Results Imaging Date Name Status LastModified by Organiz ation Details LastModified Time 02/06/2022 imaging/diagn ostic result completed french Information not available 02/20/2022 17:57:30 01/14/2022 NM, bone scan, whole body completed french Information not available 02/20/2022 17:57:31 01/14/2022 CT, abdomen + pelvis, w/o contrast completed [email or web address] Information not available 02/20/2022 17:57:30 02/20/2022 US, [...] Updated DateTime 02/20/2022 165.1 cm 39.9 kg/m2 634047.17 g Nilsa García [facility] 02/20/2022 16:30:25 Social History Question Answer Notes LastModified by Organizat ion Details LastModified Time Tobacco Smoking Status Former Smoker Nilsa García [facility] 02/18/2022 10:33:18 What Is Your Level Of Alcohol Consumption? Occasional Information not available 02/18/2022 What Is Your Level Of Caffeine Consumption? Occasional Information not available 02/20/2022 When Did You Quit Smoking? 16+yearssincel astcigarette Information not available 02/20/2022 Recreational Drug Use [...] Reflux N Heart Disease N Cancer N Lung Disease N Depression N Past Encounters Encounter ID Performer Location Encounter Start Date Encounter Closed Date Diagnosis/Indication Diagnosis SNOMED-CT Code [id number] Javon Nichols MD [facility] [address] [place] [place] [address] 02/20/2022 16:22:21 02/21/2022 13:36:03 Prostate specific antigen above reference range [id number] Health Concerns Section Related Observation LastModified by Organization Detai ls LastModified Time None Recorded Concern Status LastModified by Organization Details LastModified Time None Recorded Advance Directives Directive None Recorded Payers Encounter Date Sequence Insurance Name Policy Number Policy Mathews Covered Member ID Mathews Member ID Guarantor Name 02/20/2022 1 [place] [employer] Gildardo Huerta [id number] Gildardo Huerta 02/20/2022 2 [id number] Gildardo Huerta [id number] Gildardo Huerta Notes Date Note Type Note Provider Name and Address Organization Details Recorded Time 02/20/2022 text/html HPI Notes: 76 yo M with elevated PSA >100 ng/mL. Underwent FNA biopsy of sacral lesion but path unfortunately indeterminate. Here for prostate biopsy. All questions answered. Javon Nichols MD [address], [place], [address], [facility] 02/20/2022 17:59:30
--- OUTSIDE RECORDS SUMMARY | 2024-03-31 11:02 | XMS_ITS | Clinical Summary ---
Author Organization [facility] Address [place], [place] [address] Care Team Providers Care Pathology Laboratory Director Name Role Phone Art Leonardo MD Primary Care Provider [phone] Allergies No known active allergies Medications Medication [...] daily. 270 Capsule 3 3 Active Insulin [place], Disposable, (Unifine Pentips) 32 gauge x 1/4Indications:Typ [...] ONCE DAILY 90 Tablet 2 4 Active omeprazole (PRILOSEC) 20 mg Delayed-Release capsuleIndications: Chronic GERD Take 1 Capsule (20 mg) by mouth once daily before a meal. 90 Capsule 3 4 Active durable medical equipment (DME)Indications:Bi lateral lower extremity edema For personal use. Compression Calf wrap: 20-50 MMHG Tall Medium - black 1 Each 4 Active omeprazole (PRILOSEC) 20 mg Delayed-Release capsuleIndications: Chronic GERD Take 1 Capsule (20 mg) by mouth once daily before a meal. 90 Capsule 3 3 03/11/20 24 Discontinue d(Reorder (E-cancel not sent)) amoxicillin-clavula robyn 875-125 mg tablet (AUGMENTIN)Indicati ons:Cellulitis of right lower extremity,Blister of right lower leg, subsequent encounter Take 1 Tablet by mouth two times daily with meals for 10 days. 20 Tablet 4 03/21/20 24 Active Problems Problem Noted Date Diagnosed Date PAD (peripheral artery disease) 03/11/2024 Prostate cancer metastatic to multiple sites Anxiety 07/09/2022 Cataract, nuclear sclerotic senile, left 018 Chronic kidney disease, stage III (moderate) Morbid obesity with BMI of 40.0-44.9, adult 11/2015 Type 2 diabetes mellitus wit h stage 3 chronic kidney disease, with long-term current use of insulin 02/26/2013 Hypertension 02/26/2013 Encounters Date Type Department Care Team Description 03/11/2024 2:00 PM CDT Office Visit [facility] [address] [place] [address] Art Leonardo MD ER Follow up 03/11/2024 Travel 02/03/2024 8:20 AM CDT Office Visit [facility] [address] [place] [address] Addie Conway, TRINO Eye Exam (Diabetic) 02/03/2024 Travel 01/29/2024 4:05 PM CDT Office Visit [facility] [address] [place] [address] Art Leonardo MD Diabetes; Immunization/Injectio n 01/29/2024 Travel 01/25/2024 Refill [facility] [address] [place] [address] Yenni Peña DO Refill Request (Cyanocobalamin) from Last 3 Months Immunizations Name Administration Dates Next Due COVID-19 Vaccine Spikevax (M oderna 50mcg/0.5mL) 12YO+ [id number] Formula PF 01/29/2024 COVID-19 vaccine (Pfizer-Bio NTech [...] Body Mass Index 39.35 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 Plan of Treatment Upcoming Encounters Date Type Department Care Team (Late st Contact Info) Description 04/29/2024 2:00 PM CDT Office Visit [facility] [address] [place] [address] Art Leonardo MD [address] [place] [address] Health Maintenance Due Date Last Done Comments BMI (ht and wt on same day) for age 18+ 10/10/2023 10/10/2022, 07/08/2022, 02/03/2022, Additional history exists Medicare Wellness for age 65+ 10/11/2023 10/10/2022, 01/18/2021 COVID-19 vaccine series (2022-24 season) 2024 01/29/2024, 10/10/2022, 04/14/2022, Additional history [...] Completed 08/05/2023 Medical Devices Implanted Type Area Transformer Assembly Supervisor Device Identifier Shelf Expiration Date Model / Serial / Lot [id number] - [id number] Implanted:Qty: 1 on 08/05/2018 by Tomi Mann Jr., MD at [facility] Left: Eye [employer] 01/08/2022 [id number] / [id number] / Description:TECNIS IOL 16.5 Procedures Procedure Name [...] 7.5(H) <=6.4 % 01/29/2024 4:15 PM CDT [facility] Blood BLOOD SPECIMEN / Unknown Venipuncture / Unknown 01/29/2024 4:06 PM CDT 01/29/2024 4:06 PM CDT Narrative [facility] - 01/29/2024 4:15 PM CDT ? (<=6.9%) [...] Anemias, Splenectomy ? Art Leonardo MD CHEMISTRY [facility] [address] [place] [address], [place] [phone] * OCCULT BLOOD IFOBT STOOL (02/27/2023 2:05 PM CDT) STOOL BLOOD ,IFOBT Negative Negative 03/02/2023 2:52 PM CDT [facility] Stool STOOL SPECIMEN / Unknown Non-Blood / Unknown 02/27/2023 2:05 PM CDT 03/02/2023 2:06 PM CDT Yenni Peña DO LABORATORY [facility] [address] [place] [address], [place] [phone] * ANTI HCV (02/03/2014 11:24 AM CDT) ANTI HCV Non-reacti ve [facility] Blood specimen (specimen) BLOOD SPECIMEN / Unknown 02/03/2014 11:24 AM CDT 02/03/2014 11:19 AM CDT Carina Trinh SEND OUTS [facility] INTERNAL ZIP [phone] [address] [place] [id number] from Last 3 Months or Most Recently Relevant to Health Maintenance Advance Directives * Full Code (Latest Code Status on File) Date Activated Date Inactivated Comments 03/28/2022 11:27 AM 03/28/2022 4:55 PM Question Answer Comments Code Status Discussion: Other * Full Code Date Activated Date Inactivated Comments 08/05/2018 6:26 AM 08/05/2018 11:14 AM Question Answer Comments Code Status Discussion: Not Discussed Care Teams Pathology Laboratory Director Relationship Specialty Start Date End Date Art Leonardo MD [address] [place] [address] PCP - General Family Practice 01/31/22
== END 2024-03-31 10:58 | disposition home or self-care (01) ==
LOC: WOUND 10:58
PROVIDERS: PCP Surgery; Visit Provider Nurse Practitioner Family
DX: I87.311 Chronic venous hypertension (idiopathic) with ulcer of right lower extremity (principal); E11.622 Type 2 diabetes mellitus with other skin ulcer; I89.0 Lymphedema, not elsewhere classified; L97.818 Non-pressure chronic ulcer of other part of right lower leg with other specified severity; Z79.4 Long term (current) use of insulin; Z79.84 Long term (current) use of oral hypoglycemic drugs
CPT/HCPCS: G0463

== ENCOUNTER 2024-06-17 14:00 | Outpatient (RCR) | payer MEDICARE, BC, SELFPAY ==
[2023-12-21 15:54] LABS: Basophils Absolute Auto 0.02 K/uL (0.00-0.30); Basophils Percent Auto 0.3 % (0.0-3.0); Eosinophils Absolute Auto 0.21 K/uL (0.00-0.50); Eosinophils Percent Auto 3.3 % (0.0-7.0); Hematocrit 34.4 % (37.0-53.0); Hemoglobin* 11.2 gm/dL (13.5-17.5); Immature Granulocytes Abs Auto 0.05 K/uL (0.00-0.30); Immature Granulocytes Pct Auto 0.8 %; Lymphocytes Absolute Auto 1.37 K/uL (0.90-2.90); Lymphocytes Percent Auto 21.4 % (20-44); Mean Corpuscular HGB Conc 33 gm/dL (32-36); Mean Corpuscular Hemoglobin 32 pg (26-34); Mean Corpuscular Volume 98 fL (80-100); Monocytes Percent Auto 8.3 % (0.0-11.0); Neutrophils Absolute Auto 4.21 K/uL (1.7-7.0); Neutrophils Percent Auto 65.9 % (42.0-72.0); Platelet Count* 228 K/uL (140-440); RDW Coefficient of Variation % 14.4 % (11.5-15.5); Red Blood Count 3.51 m/uL (4.30-5.90); White Blood Count* 6.39 K/uL (4.50-11.00)
[2023-12-21 16:12] LABS: Slide Review Reflex No
[2023-12-21 16:31] LABS: Albumin* 4.3 g/dL (3.3-5.0); Chloride* 107 mmol/L (96-114)
[2023-12-21 16:32] LABS: Potassium* 4.9 mmol/L (3.6-5.1); Sodium* 140 mmol/L (135-149)
[2023-12-21 16:34] LABS: Anion Gap 12 mEq/L (7-15); Bilirubin Total* 0.4 mg/dL (0.1-1.5); Carbon Dioxide* 21 mmol/L (20-32); Creatinine* 1.5 mg/dL (0.5-1.5); Estimated Glomerular Filt Rate 47 ml/min; Total Protein* 7.6 g/dL (6.0-8.3)
[2023-12-21 16:35] LABS: Alanine Aminotransferase* 12 U/L (4-50); Alkaline Phosphatase* 111 U/L (40-150); Aspartate Amino Transferase* 19 U/L (12-35); Blood Urea Nitrogen* 35 mg/dL (7-30); Calcium* 9.6 mg/dL (8.4-10.6); Glucose* 100 mg/dL (60-115)
[2023-12-21 17:14] LABS: PSA Diagnostic* < 0.06 ng/mL (0.10-4.00)
[2023-12-22] MEDS: LEUPROLIDE ACETATE 22.5 MG (SQ) SYRINGE SUBCUT (15:47)
[2024-03-17 08:14] LABS: Basophils Absolute Auto 0.02 K/uL (0.00-0.30); Basophils Percent Auto 0.4 % (0.0-3.0); Eosinophils Absolute Auto 0.24 K/uL (0.00-0.50); Eosinophils Percent Auto 4.3 % (0.0-7.0); Hematocrit 35.3 % (37.0-53.0); Hemoglobin* 11.7 gm/dL (13.5-17.5); Immature Granulocytes Abs Auto 0.05 K/uL (0.00-0.30); Immature Granulocytes Pct Auto 0.9 %; Lymphocytes Absolute Auto 1.58 K/uL (0.90-2.90); Lymphocytes Percent Auto 28.6 % (20-44); Mean Corpuscular HGB Conc 33 gm/dL (32-36); Mean Corpuscular Hemoglobin 33 pg (26-34); Mean Corpuscular Volume 98 fL (80-100); Monocytes Percent Auto 9.6 % (0.0-11.0); Neutrophils Absolute Auto 3.11 K/uL (1.7-7.0); Neutrophils Percent Auto 56.2 % (42.0-72.0); Platelet Count* 206 K/uL (140-440); RDW Coefficient of Variation % 12.8 % (11.5-15.5); White Blood Count* 5.53 K/uL (4.50-11.00)
[2024-03-17 08:29] LABS: Albumin* 4.4 g/dL (3.3-5.0); Chloride* 107 mmol/L (96-114)
[2024-03-17 08:30] LABS: Potassium* 4.5 mmol/L (3.6-5.1); Sodium* 142 mmol/L (135-149)
[2024-03-17 08:32] LABS: Anion Gap 8 mEq/L (7-15); Aspartate Amino Transferase* 21 U/L (12-35); Bilirubin Total* 0.6 mg/dL (0.1-1.5); Carbon Dioxide* 27 mmol/L (20-32); Creatinine* 1.5 mg/dL (0.5-1.5); Estimated Glomerular Filt Rate 47 ml/min
[2024-03-17 08:33] LABS: Alanine Aminotransferase* 16 U/L (4-50); Alkaline Phosphatase* 98 U/L (40-150); Blood Urea Nitrogen* 32 mg/dL (7-30); Calcium* 9.2 mg/dL (8.4-10.6); Glucose* 100 mg/dL (60-115); Total Protein* 7.8 g/dL (6.0-8.3)
[2024-03-17 08:45] LABS: Slide Review Reflex No
[2024-03-17 09:19] LABS: PSA Diagnostic* < 0.06 ng/mL (0.10-4.00)
[2024-03-17 09:21] LABS: Vitamin B12* 836 pg/mL (243-894)
[2024-03-17 09:24] LABS: Ferritin* 36.3 ng/mL (17.9-464.0)
--- NOTE | 2024-03-17 11:16 | URNOTE ---
Received request for prior authorization for Andres ([id number]). Pt has medicare, Prior authorization is not required as services are based on medical necessity and follow medicare guidelines.
[2024-03-18 07:09] LABS: Folate, Serum 8.3 ng/mL (>=5.9)
[2024-03-21] MEDS: LEUPROLIDE ACETATE 22.5 MG (SQ) SYRINGE SUBCUT (15:32)
[2024-06-17 14:16] LABS: Basophils Absolute Auto 0.03 K/uL (0.00-0.30); Basophils Percent Auto 0.6 % (0.0-3.0); Eosinophils Percent Auto 3.9 % (0.0-7.0); Hematocrit 35.7 % (37.0-53.0); Hemoglobin* 11.5 gm/dL (13.5-17.5); Immature Granulocytes Abs Auto 0.02 K/uL (0.00-0.30); Immature Granulocytes Pct Auto 0.4 %; Mean Corpuscular HGB Conc 32 gm/dL (32-36); Mean Corpuscular Hemoglobin 31 pg (26-34); Mean Corpuscular Volume 98 fL (80-100); Monocytes Percent Auto 9.1 % (0.0-11.0); Neutrophils Absolute Auto 3.07 K/uL (1.7-7.0); Platelet Count* 219 K/uL (140-440); RDW Coefficient of Variation % 12.9 % (11.5-15.5); Red Blood Count 3.66 m/uL (4.30-5.90); White Blood Count* 5.19 K/uL (4.50-11.00)
[2024-06-17 14:21] LABS: Slide Review Reflex No
[2024-06-17 14:32] LABS: Albumin* 4.2 g/dL (3.3-5.0); Chloride* 103 mmol/L (96-114); Sodium* 137 mmol/L (135-149)
[2024-06-17 14:33] LABS: Potassium* 4.3 mmol/L (3.6-5.1)
[2024-06-17 14:35] LABS: Alkaline Phosphatase* 98 U/L (40-150); Anion Gap 8 mEq/L (7-15); Aspartate Amino Transferase* 18 U/L (12-35); Bilirubin Total* 0.4 mg/dL (0.1-1.5); Blood Urea Nitrogen* 30 mg/dL (7-30); Carbon Dioxide* 26 mmol/L (20-32); Creatinine* 1.6 mg/dL (0.5-1.5); Estimated Glomerular Filt Rate 44 ml/min
[2024-06-17 14:36] LABS: Alanine Aminotransferase* 15 U/L (4-50); Calcium* 9.1 mg/dL (8.4-10.6); Glucose* 97 mg/dL (60-115)
[2024-06-17 15:14] LABS: PSA Diagnostic* < 0.06 ng/mL (0.10-4.00)
== END 2024-06-18 23:59 | disposition home or self-care (01) ==
LOC: CCIC 14:00
PROVIDERS: PCP Surgery; Referring Provider Surgery; Visit Provider Internal Medicine Hematology & Oncology
DX: C61 Malignant neoplasm of prostate (principal); C79.51 Secondary malignant neoplasm of bone
CPT/HCPCS: 36415; 80053; 82607; 82728; 82746; 84153; 85025; 96372; 96401; 97602; 99214; G0463; J9217

== ENCOUNTER 2024-08-23 14:00 | Outpatient (RCR) | payer MEDICARE, BC, SELFPAY | END 2024-12-21 23:59 | disposition home or self-care (01) | PROVIDERS: PCP Surgery; Visit Provider Nurse Practitioner Family | DX: I89.0 Lymphedema, not elsewhere classified (principal); Z51.89 Encounter for other specified aftercare | CPT/HCPCS: 97140; 97165; 97535 ==

== ENCOUNTER 2024-09-26 15:00 | Outpatient (RCR) | payer MEDICARE, BC, SELFPAY ==
[2024-06-20] MEDS: LEUPROLIDE ACETATE 22.5 MG (SQ) SYRINGE SUBCUT (15:36)
[2024-09-23 15:25] LABS: Basophils Absolute Auto 0.03 K/uL (0.00-0.30); Basophils Percent Auto 0.6 % (0.0-3.0); Eosinophils Absolute Auto 0.24 K/uL (0.00-0.50); Eosinophils Percent Auto 4.7 % (0.0-7.0); Hematocrit 34.9 % (37.0-53.0); Hemoglobin* 11.6 gm/dL (13.5-17.5); Immature Granulocytes Abs Auto 0.03 K/uL (0.00-0.30); Immature Granulocytes Pct Auto 0.6 %; Lymphocytes Absolute Auto 1.39 K/uL (0.90-2.90); Lymphocytes Percent Auto 27.1 % (20-44); Mean Corpuscular HGB Conc 33 gm/dL (32-36); Mean Corpuscular Hemoglobin 32 pg (26-34); Mean Corpuscular Volume 96 fL (80-100); Monocytes Percent Auto 11.7 % (0.0-11.0); Neutrophils Absolute Auto 2.83 K/uL (1.7-7.0); Neutrophils Percent Auto 55.3 % (42.0-72.0); Platelet Count* 214 K/uL (140-440); RDW Coefficient of Variation % 13.2 % (11.5-15.5); Red Blood Count 3.62 m/uL (4.30-5.90); White Blood Count* 5.12 K/uL (4.50-11.00)
[2024-09-23 15:37] LABS: Slide Review Reflex No
[2024-09-23 15:44] LABS: Chloride* 102 mmol/L (96-114)
[2024-09-23 15:45] LABS: Potassium* 4.5 mmol/L (3.6-5.1); Sodium* 137 mmol/L (135-149)
[2024-09-23 15:47] LABS: Alanine Aminotransferase* 14 U/L (4-50); Alkaline Phosphatase* 113 U/L (40-150); Anion Gap 9 mEq/L (7-15); Aspartate Amino Transferase* 17 U/L (12-35); Bilirubin Total* 0.2 mg/dL (0.1-1.5); Blood Urea Nitrogen* 32 mg/dL (7-30); Carbon Dioxide* 26 mmol/L (20-32); Creatinine* 1.6 mg/dL (0.5-1.5); Est. Creatinine Clearance* 31.35; Estimated Glomerular Filt Rate 44 ml/min; Glucose* 122 mg/dL (60-115)
[2024-09-23 15:48] LABS: Calcium* 8.9 mg/dL (8.4-10.6)
[2024-09-23 16:23] LABS: PSA Diagnostic* < 0.06 ng/mL (0.10-4.00)
[2024-09-26] MEDS: LEUPROLIDE ACETATE 22.5 MG (SQ) SYRINGE SUBCUT (15:38)
== END 2024-12-17 23:59 | disposition home or self-care (01) ==
LOC: CCIC 15:00
PROVIDERS: PCP Surgery; Referring Provider Surgery; Visit Provider Internal Medicine Hematology & Oncology
DX: C61 Malignant neoplasm of prostate (principal); C79.51 Secondary malignant neoplasm of bone; D64.9 Anemia, unspecified; F41.9 Anxiety disorder, unspecified
CPT/HCPCS: 36415; 80053; 84153; 85025; 96401; 96402; 99214; G0463; J9217

== ENCOUNTER 2025-06-28 15:00 | Outpatient (RCR) | payer BC, MEDICARE, SELFPAY ==
[2024-12-30 15:25] LABS: Hematocrit* 34.4 % (37.0-53.0); Hemoglobin* 11.1 gm/dL (13.5-17.5); Immature Granulocytes Abs Auto 0.03 K/uL (0.00-0.30); Immature Granulocytes Pct Auto 0.5 %; Lymphocytes Absolute Auto 1.47 K/uL (0.90-2.90); Mean Corpuscular HGB Conc 32 gm/dL (32-36); Mean Corpuscular Hemoglobin 32 pg (26-34); Mean Corpuscular Volume 98 fL (80-100); RDW Coefficient of Variation % 13.1 % (11.5-15.5); Red Blood Count* 3.50 m/uL (4.30-5.90); White Blood Count* 5.79 K/uL (4.50-11.00)
[2024-12-30 15:30] LABS: Slide Review Reflex No
[2024-12-30 15:45] LABS: Albumin* 4.0 g/dL (3.3-5.0); Chloride* 103 mmol/L (96-114); Sodium* 138 mmol/L (135-149)
[2024-12-30 15:46] LABS: Potassium* 4.6 mmol/L (3.6-5.1)
[2024-12-30 15:48] LABS: Alkaline Phosphatase* 102 U/L (40-150); Anion Gap 11 mEq/L (7-15); Aspartate Amino Transferase* 15 U/L (12-35); Bilirubin Total* 0.3 mg/dL (0.1-1.5); Blood Urea Nitrogen* 36 mg/dL (7-30); Carbon Dioxide* 24 mmol/L (20-32); Creatinine* 1.4 mg/dL (0.5-1.5); Estimated Glomerular Filt Rate 51 ml/min; Total Protein* 6.2 g/dL (6.0-8.3)
[2024-12-30 15:49] LABS: Alanine Aminotransferase* 15 U/L (4-50); Calcium* 8.5 mg/dL (8.4-10.6); Glucose* 161 mg/dL (60-115)
[2024-12-30] MEDS: LEUPROLIDE ACETATE (ELIGARD) 22.5 MG INJ SUBCUT (15:55)
[2024-12-30 16:21] LABS: PSA Diagnostic* < 0.06 ng/mL (0.10-4.00)
[2024-12-30 16:39] LABS: Vitamin B12* 848 pg/mL (243-894)
[2025-01-01 06:43] LABS: Folate, Serum 9.9 ng/mL (>=5.9)
--- NOTE | 2025-03-01 12:06 | URNOTE ---
Received request for prior authorization for Andres ([id number]). Pt has medicare, Prior authorization is not required as services are based on medical necessity and follow medicare guidelines.
[2025-03-24 15:09] LABS: Hematocrit* 36.4 % (37.0-53.0); Hemoglobin* 11.7 gm/dL (13.5-17.5); Immature Granulocytes Abs Auto 0.03 K/uL (0.00-0.30); Immature Granulocytes Pct Auto 0.5 %; Lymphocytes Absolute Auto 1.51 K/uL (0.90-2.90); Mean Corpuscular HGB Conc 32 gm/dL (32-36); Mean Corpuscular Hemoglobin 31 pg (26-34); Mean Corpuscular Volume 97 fL (80-100); RDW Coefficient of Variation % 12.9 % (11.5-15.5); Red Blood Count* 3.75 m/uL (4.30-5.90); White Blood Count* 6.27 K/uL (4.50-11.00)
[2025-03-24 15:10] LABS: Slide Review Reflex No
[2025-03-24 15:30] LABS: Albumin* 4.1 g/dL (3.3-5.0); Chloride* 105 mmol/L (96-114); Potassium* 4.6 mmol/L (3.6-5.1); Sodium* 140 mmol/L (135-149)
[2025-03-24 15:32] LABS: Blood Urea Nitrogen* 35 mg/dL (7-30); Creatinine* 1.7 mg/dL (0.5-1.5); Estimated Glomerular Filt Rate 41 ml/min
[2025-03-24 15:33] LABS: Alanine Aminotransferase* 19 U/L (4-50); Alkaline Phosphatase* 106 U/L (40-150); Anion Gap 8 mEq/L (7-15); Aspartate Amino Transferase* 21 U/L (12-35); Bilirubin Total* 0.4 mg/dL (0.1-1.5); Calcium* 9.0 mg/dL (8.4-10.6); Carbon Dioxide* 27 mmol/L (20-32); Glucose* 202 mg/dL (60-115); Total Protein* 6.9 g/dL (6.0-8.3)
[2025-03-24 16:13] LABS: PSA Diagnostic* < 0.06 ng/mL (0.10-4.00)
[2025-03-27] MEDS: LEUPROLIDE ACETATE (ELIGARD) 22.5 MG INJ SUBCUT (15:29)
[2025-06-28 15:03] VITALS: BP 156/63; PULSE 83; RESP 16; TEMP 37.1; O2SAT 97
[2025-06-28 15:17] LABS: Hematocrit* 36.8 % (37.0-53.0); Hemoglobin* 11.9 gm/dL (13.5-17.5); Immature Granulocytes Abs Auto 0.06 K/uL (0.00-0.30); Immature Granulocytes Pct Auto 0.9 %; Lymphocytes Absolute Auto 1.63 K/uL (0.90-2.90); Mean Corpuscular HGB Conc 32 gm/dL (32-36); Mean Corpuscular Hemoglobin 31 pg (26-34); Mean Corpuscular Volume 97 fL (80-100); RDW Coefficient of Variation % 12.7 % (11.5-15.5); Red Blood Count* 3.80 m/uL (4.30-5.90); White Blood Count* 6.63 K/uL (4.50-11.00)
[2025-06-28 15:35] LABS: Chloride* 102 mmol/L (96-114)
[2025-06-28 15:36] LABS: Albumin* 4.1 g/dL (3.3-5.0); Potassium* 4.7 mmol/L (3.6-5.1); Sodium* 136 mmol/L (135-149)
[2025-06-28 15:38] LABS: Alanine Aminotransferase* 19 U/L (4-50); Anion Gap 7 mEq/L (7-15); Aspartate Amino Transferase* 23 U/L (12-35); Blood Urea Nitrogen* 29 mg/dL (7-30); Carbon Dioxide* 27 mmol/L (20-32); Creatinine* 1.6 mg/dL (0.5-1.5); Est. Creatinine Clearance* 31.35; Estimated Glomerular Filt Rate 44 ml/min
[2025-06-28 15:39] LABS: Alkaline Phosphatase* 89 U/L (40-150); Bilirubin Total* 0.3 mg/dL (0.1-1.5); Calcium* 9.2 mg/dL (8.4-10.6); Glucose* 126 mg/dL (60-115); Total Protein* 7.2 g/dL (6.0-8.3)
[2025-06-28 15:41] LABS: Slide Review Reflex No
[2025-06-28] MEDS: LEUPROLIDE ACETATE (ELIGARD) 22.5 MG INJ SUBCUT (15:48)
[2025-06-28 16:17] LABS: PSA Diagnostic* < 0.06 ng/mL (0.10-4.00)
--- NOTE | 2025-06-29 11:18 | ONC.NURNOTE ---
message left on codie Ralph's voice mail to call for lab results- which are stable
== END 2025-06-28 23:59 | disposition home or self-care (01) ==
LOC: CCIC 15:00
PROVIDERS: PCP Surgery; Referring Provider Surgery; Visit Provider Internal Medicine Hematology & Oncology
DX: C61 Malignant neoplasm of prostate (principal); C79.51 Secondary malignant neoplasm of bone; Z79.818 Long term (current) use of other agents affecting estrogen receptors and estrogen levels
CPT/HCPCS: 36415; 80053; 82607; 82728; 82746; 84153; 85025; 96402; 99214; G0463; J9217